=== PATIENT | male | born 1950 | race African-American/Black ===

== ENCOUNTER 2020-11-24 15:36 | Inpatient (IN) | payer MEDICARE, MEDICAID ==
[2020-11-24] MEDS ORDERED: Ketamine 50 MG/ML (10ML VIAL) ONE (15:55)
[2020-11-24] MEDS ORDERED: EPINEPHrine 1 MG/10 ML Abboject SYRINGE ONE (15:56)
[2020-11-24] MEDS ORDERED: Rocuronium Bromide 10 MG/ML (10ML VIAL) ONE ×2 (15:56→15:57)
[2020-11-24] MEDS ORDERED: Fentanyl CADD 100 ML IV SCH (16:15)
[2020-11-24 16:27] LABS: #Lymphocytes 0.6 thou/uL (1.20-3.40); #Monocytes 0.3 thou/uL (0.11-0.59); #Neutrophils 4.5 thou/uL (1.40-6.50); %Eosinophils 0.3 % (0.0-10.0); %Lymphocytes 11.3 % (21.0-51.0); %Monocytes 5.3 % (0.0-10.0); %Neutrophils 83.1 % (42.0-75.0); Hemoglobin 11.3 g/dL (14.0-18.0); Mean Corpuscular HGB CONC 32.3 g/dL (32.0-36.0); Mean Corpuscular Hemoglobin 32.5 pg (27.0-31.0); Mean Platelet Volume 6.9 fL (7.4-10.4); Platelet Count 222 thou/uL (130-400); RBC Distribution Width 11.9 % (11.5-14.5); Red Blood Cell (RBC) Count 3.47 mill/uL (4.70-6.10); White Blood Cell (WBC) Count 5.4 thou/uL (4.8-10.8)
[2020-11-24 16:30] LABS: INR-International Normal Ratio 1.2; Prothrombin Time 15.8 sec (12.0-14.7)
[2020-11-24 16:31] LABS: PTT 44.7 sec (22.9-36.1)
[2020-11-24 16:33] LABS: Acetaminophen Less than 6.0 mcg/mL (10.0-30.0); Alcohol Less than 10 mg/dL (Less than 10); Salicylate Less than 8.0 mg/dL (15.0-30.0)
[2020-11-24 16:34] LABS: ALT (SGPT) 34 U/L (8-55); AST (SGOT) 73 U/L (5-34); Albumin 3.3 g/dL (3.5-5.0); Alkaline Phosphatase 99 U/L (40-110); Anion Gap 18 mmol/L (10-20); BUN (Urea Nitrogen) 82 mg/dL (8.4-25.7); Bilirubin, Total 0.3 mg/dL (0.2-1.2); CK (CPK) 2394 U/L (30-200); Calc. Creatinine Clearance 0 mL/min (70-130); Calcium 8.6 mg/dL (7.8-10.44); Carbon Dioxide 22 mmol/L (22-29); Chloride 112 mmol/L (98-107); Globulin 3.4 g/dL (2.4-3.5); Glucose 71 mg/dL (70-105); Protein, Total 6.7 g/dL (6.0-8.3); Sodium 148 mmol/L (136-145)
[2020-11-24 17:03] LABS: Base Excess (BEa) -7.1 mEq/L (-2.0 to +3.0); CO2 Tension 30.3 mmHg (35.0-45.0); Carboxyhemoglobin (COHb) 0.3 gm% (0.0-3.0); Hemoglobin (Hb) 12.7 g/dL (14.0-18.0); O2 Tension (PaO2), arterial 418.2 mmHg (> 80.0); pH, Arterial 7.37 (7.35-7.45)
[2020-11-24 17:04] LABS: Analyzer IN Cardio ER; Calcium, Ionized (arterial) 1.16 mmol/L (1.12-1.30); Potassium - ABG Lab 4.46 mmol/L (3.70-5.30); Puncture Site LRA
[2020-11-24 17:05] LABS: ALV-art Gradient -28.275 mmHg (0-20)
[2020-11-24 17:54] LABS: Bacteria/HPF None Seen HPF (None Seen); Bilirubin Negative (Negative); Blood, Urine 1+ (Negative); Clarity Clear (Clear); Glucose, Urine (Dipstick) Normal (Negative); Ketone, Urine Trace mg/dL (Negative); Leukocyte Negative Leu/uL (Negative); Nitrite Negative (Negative); Protein, Urine (Dipstick) 100 mg/dL (Neg-Trace); Specific Gravity, Urine 1.021 (1.002-1.036); Squamous Epithelial 0-3 HPF (0-3); Urobilinogen Normal mg/dL (Less than 2)
[2020-11-24 18:05] LABS: RBC/HPF 0-3 HPF (0-3); WBC/HPF 0-3 HPF (0-3)
[2020-11-24 18:06] LABS: Amphetamine Not Detected (NotDetected); Barbiturates Screen Not Detected (NotDetected); Benzodiazepine Screen Not Detected (NotDetected); Cocaine Metabolite Screen Not Detected (NotDetected); Medtox Control Line Valid? VALID (VALID); Medtox Reader # READER 1; Methadone Not Detected (NotDetected); Methamphetamine Not Detected (NotDetected); Opiate Screen Not Detected (NotDetected); Oxycodone Screen Not Detected (NotDetected); Phencyclidine (PCP) Not Detected (NotDetected); THC/Cannabinoid Screen Not Detected (NotDetected); Tricyclic Screen Not Detected (NotDetected)
[2020-11-24] MEDS ORDERED: Ondansetron PF 4 MG/2 ML Vial IVP PRN (18:30)
[2020-11-24] MEDS ORDERED: Acetaminophen 325 MG TAB PO PRN (18:30)
[2020-11-24] MEDS ORDERED: Acetaminophen 650 MG Suppository PR PRN (18:30)
[2020-11-24 18:31] LABS: SARS-CoV-2 NAA Rapid Test Not Detected (NotDetected)
[2020-11-24] MEDS ORDERED: Sodium Chloride 0.9% 1,000 ML IV SCH ×2 (18:45→20:00)
[2020-11-24 18:47] LABS: CKMB 69.4 ng/mL (0-6.6)
[2020-11-24] MEDS ORDERED: Famotidine/PF 20 mg/2ml Vial SLOW IVP SCH (21:00)
[2020-11-24] MEDS ORDERED: VANCOMYCIN 1.25 GM/250 ML BAG 1.25 GM in Premix Bag 1 BAG IVPB SCH (21:30)
[2020-11-24 21:49] LABS: Anion Gap 24 mmol/L (10-20); BUN (Urea Nitrogen) 86 mg/dL (8.4-25.7); Calc. Creatinine Clearance 32 mL/min (70-130); Calcium 8.3 mg/dL (7.8-10.44); Carbon Dioxide 15 mmol/L (23-31); Chloride 113 mmol/L (98-107); Glucose 67 mg/dL (80-115); Potassium 4.5 mmol/L (3.5-5.1); Sodium 147 mmol/L (136-145)
[2020-11-24] MEDS ORDERED: Dextrose 50% Abboject 50 ML SYRINGE SLOW IVP SCH (23:15)
[2020-11-24] MEDS: Dextrose 5 % And 0.9 % NaCl 1,000 ML IV SCH (23:21)
[2020-11-25] MEDS: Norepinephrine 8 MG/0.9% NS 250 ML IVPB SCH ×2 (00:43→11:31)
[2020-11-25 02:52] LABS: Troponin I 0.405 ng/mL (< 0.028)
[2020-11-25] MEDS ORDERED: Furosemide 40 MG/4 ML VIAL SLOW IVP SCH (03:00)
[2020-11-25] MEDS ORDERED: Sodium Chloride 0.9% 1,000 ML IV SCH (03:00)
[2020-11-25 04:33] LABS: #Lymphocytes 0.6 thou/uL (1.20-3.40); #Monocytes 0.4 thou/uL (0.11-0.59); #Neutrophils 7.6 thou/uL (1.40-6.50); %Basophils 0.3 % (0.0-1.0); %Eosinophils 0.1 % (0.0-10.0); %Lymphocytes 7.3 % (21.0-51.0); %Monocytes 4.8 % (0.0-10.0); %Neutrophils 87.5 % (42.0-75.0); Hemoglobin 10.5 g/dL (14.0-18.0); Mean Corpuscular HGB CONC 32.5 g/dL (32.0-36.0); Mean Corpuscular Hemoglobin 31.9 pg (27.0-31.0); Mean Corpuscular Volume 98.1 fL (78.0-98.0); Mean Platelet Volume 7.4 fL (7.4-10.4); Platelet Count 268 thou/uL (130-400); RBC Distribution Width 12.1 % (11.5-14.5); Red Blood Cell (RBC) Count 3.27 mill/uL (4.70-6.10); White Blood Cell (WBC) Count 8.7 thou/uL (4.8-10.8)
[2020-11-25 05:00] LABS: ALT (SGPT) 29 U/L (8-55); AST (SGOT) 61 U/L (5-34); Albumin 2.9 g/dL (3.4-4.8); Alkaline Phosphatase 81 U/L (40-110); Anion Gap 19 mmol/L (10-20); BUN (Urea Nitrogen) 93 mg/dL (8.4-25.7); Bilirubin, Total 0.3 mg/dL (0.2-1.2); CK (CPK) 1548 U/L (30-200); Calc. Creatinine Clearance 22 mL/min (70-130); Calcium 7.6 mg/dL (7.8-10.44); Carbon Dioxide 17 mmol/L (23-31); Chloride 114 mmol/L (98-107); Globulin 3.1 g/dL (2.4-3.5); Glucose 168 mg/dL (80-115); Potassium 4.6 mmol/L (3.5-5.1); Sodium 145 mmol/L (136-145)
[2020-11-25] MEDS ORDERED: Cefepime 2 GM in Sodium Chloride 0.9% 100 ML IVPB SCH (05:00)
[2020-11-25] MEDS: Dextrose 5 % And 0.9 % NaCl 1,000 ML IV SCH ×2 (08:09→14:44)
[2020-11-25] MEDS: Cefepime 1 GM in Sodium Chloride 0.9% 100 ML IVPB SCH (08:20)
[2020-11-25] MEDS: Albumin 25% 25 GM/100 ML BOT IVPB SCH ×3 (08:21→21:00)
[2020-11-25] MEDS: Enoxaparin Sodium 30 MG/0.3 ML SYRINGE SC SCH (08:59)
[2020-11-25] MEDS ORDERED: FLU VACC QS2020-21(65YR UP)/PF 240 MCG/0.7 ML SYRINGE IM ONE (09:00)
[2020-11-25] MEDS ORDERED: Vancomycin HCl 750 MG in Sodium Chloride 0.9% 250 ML 250 ML IVPB SCH (21:00)
[2020-11-25] MEDS ORDERED: Famotidine/PF 20 mg/2ml Vial SLOW IVP SCH (21:00)
[2020-11-26] MEDS: Dextrose 5 % And 0.9 % NaCl 1,000 ML IV SCH ×2 (01:37→09:33)
[2020-11-26] MEDS: Albumin 25% 25 GM/100 ML BOT IVPB SCH (03:52)
[2020-11-26 04:23] LABS: #Lymphocytes 1.3 thou/uL (1.20-3.40); #Monocytes 0.4 thou/uL (0.11-0.59); #Neutrophils 4.3 thou/uL (1.40-6.50); %Basophils 0.4 % (0.0-1.0); %Eosinophils 0.5 % (0.0-10.0); %Lymphocytes 21.3 % (21.0-51.0); %Monocytes 7.2 % (0.0-10.0); %Neutrophils 70.7 % (42.0-75.0); Hemoglobin 8.5 g/dL (14.0-18.0); Mean Corpuscular HGB CONC 32.8 g/dL (32.0-36.0); Mean Corpuscular Hemoglobin 32.4 pg (27.0-31.0); Mean Corpuscular Volume 98.9 fL (78.0-98.0); Mean Platelet Volume 7.1 fL (7.4-10.4); Platelet Count 146 thou/uL (130-400); RBC Distribution Width 12.3 % (11.5-14.5); Red Blood Cell (RBC) Count 2.62 mill/uL (4.70-6.10)
[2020-11-26 04:47] LABS: ALT (SGPT) 22 U/L (8-55); AST (SGOT) 49 U/L (5-34); Albumin 3.5 g/dL (3.4-4.8); Alkaline Phosphatase 63 U/L (40-110); Anion Gap 13 mmol/L (10-20); BUN (Urea Nitrogen) 80 mg/dL (8.4-25.7); Bilirubin, Total 0.3 mg/dL (0.2-1.2); CK (CPK) 1888 U/L (30-200); Calc. Creatinine Clearance 34 mL/min (70-130); Calcium 7.2 mg/dL (7.8-10.44); Carbon Dioxide 20 mmol/L (23-31); Chloride 122 mmol/L (98-107); Globulin 2.6 g/dL (2.4-3.5); Glucose 71 mg/dL (80-115); Potassium 3.7 mmol/L (3.5-5.1); Protein, Total 6.1 g/dL (5.8-8.1); Sodium 151 mmol/L (136-145)
[2020-11-26 07:17] LABS: Actual Bicarbonate (HCO3a) 20.2 mEq/L (22-28); Base Excess (BEa) -4.4 mEq/L (-2.0 to +3.0); CO2 Tension 34.8 mmHg (35.0-45.0); Calcium, Ionized (arterial) 1.04 mmol/L (1.12-1.30); Carboxyhemoglobin (COHb) 0.3 gm% (0.0-3.0); Hemoglobin (Hb) 8.4 g/dL (14.0-18.0); O2 Tension (PaO2), arterial 176.7 mmHg (> 80.0); Potassium - ABG Lab 3.74 mmol/L (3.70-5.30); pH, Arterial 7.38 (7.35-7.45)
[2020-11-26 07:25] LABS: Puncture Site LRA
[2020-11-26] MEDS: Cefepime 1 GM in Sodium Chloride 0.9% 100 ML IVPB SCH (08:56)
[2020-11-26] MEDS: Enoxaparin Sodium 30 MG/0.3 ML SYRINGE SC SCH (08:57)
[2020-11-26] MEDS: Dextrose 5% in Water 1,000 ML IV SCH ×2 (09:37→19:44)
[2020-11-26] MEDS: Famotidine 20 MG TAB PER TUBE SCH (21:12)
[2020-11-27 05:25] LABS: Hemoglobin 8.8 g/dL (14.0-18.0); Mean Corpuscular Hemoglobin 32.5 pg (27.0-31.0); Mean Corpuscular Volume 98.5 fL (78.0-98.0); Mean Platelet Volume 8.4 fL (7.4-10.4); Platelet Count 128 thou/uL (130-400); RBC Distribution Width 12.5 % (11.5-14.5); Red Blood Cell (RBC) Count 2.69 mill/uL (4.70-6.10); White Blood Cell (WBC) Count 6.8 thou/uL (4.8-10.8)
[2020-11-27 05:27] LABS: ALT (SGPT) 29 U/L (8-55); AST (SGOT) 59 U/L (5-34); Albumin 3.5 g/dL (3.4-4.8); Alkaline Phosphatase 62 U/L (40-110); Anion Gap 14 mmol/L (10-20); BUN (Urea Nitrogen) 62 mg/dL (8.4-25.7); Bilirubin, Total 0.4 mg/dL (0.2-1.2); Calc. Creatinine Clearance 29 mL/min (70-130); Calcium 7.9 mg/dL (7.8-10.44); Carbon Dioxide 20 mmol/L (23-31); Chloride 117 mmol/L (98-107); Globulin 2.7 g/dL (2.4-3.5); Glucose 88 mg/dL (80-115); Potassium 3.7 mmol/L (3.5-5.1); Protein, Total 6.2 g/dL (5.8-8.1); Sodium 147 mmol/L (136-145)
[2020-11-27 06:00] LABS: Band 1 % (5-11); Hypochromia SLIGHT = 6-15 cells (100X) (0-5/hpf); Lymphocytes 8 % (21-51); MDiff Complete? YES; Monocytes 5 % (0-10); Neutrophil 86 % (42-75); Platelet Morphology Comment Appears Decreased
[2020-11-27 07:58] LABS: Actual Bicarbonate (HCO3a) 18.7 mEq/L (22-28); Base Excess (BEa) -3.4 mEq/L (-2.0 to +3.0); Calcium, Ionized (arterial) 1.12 mmol/L (1.12-1.30); Carboxyhemoglobin (COHb) 0.3 gm% (0.0-3.0); Hemoglobin (Hb) 9.9 g/dL (14.0-18.0); Potassium - ABG Lab 3.58 mmol/L (3.70-5.30)
[2020-11-27 08:30] LABS: CO2 Tension 24.7 mmHg (35.0-45.0)
[2020-11-27 08:31] LABS: ALV-art Gradient 44.025 mmHg (0-20); Puncture Site RRA
[2020-11-27] MEDS: Enoxaparin Sodium 30 MG/0.3 ML SYRINGE SC SCH (09:36)
[2020-11-27] MEDS: Cefepime 1 GM in Sodium Chloride 0.9% 100 ML IVPB SCH (09:36)
[2020-11-27] MEDS: Famotidine 20 MG TAB PER TUBE SCH (20:30)
[2020-11-27] MEDS: Dextrose 5% in Water 1,000 ML IV SCH (20:31)
[2020-11-28] MEDS: Dextrose 5% in Water 1,000 ML IV SCH (02:39)
[2020-11-28 04:59] LABS: Anion Gap 12 mmol/L (10-20); BUN (Urea Nitrogen) 40 mg/dL (8.4-25.7); CK (CPK) 2014 U/L (30-200); Calc. Creatinine Clearance 47 mL/min (70-130); Carbon Dioxide 23 mmol/L (23-31); Chloride 108 mmol/L (98-107); Glucose 87 mg/dL (80-115); Potassium 3.8 mmol/L (3.5-5.1); Sodium 139 mmol/L (136-145)
[2020-11-28 05:04] LABS: #Lymphocytes 1.2 thou/uL (1.20-3.40); #Monocytes 0.7 thou/uL (0.11-0.59); %Basophils 0.1 % (0.0-1.0); %Eosinophils 0.3 % (0.0-10.0); %Lymphocytes 15.6 % (21.0-51.0); %Monocytes 8.4 % (0.0-10.0); %Neutrophils 75.5 % (42.0-75.0); Hemoglobin 9.4 g/dL (14.0-18.0); Mean Corpuscular Hemoglobin 31.8 pg (27.0-31.0); Mean Corpuscular Volume 99.2 fL (78.0-98.0); Mean Platelet Volume 8.6 fL (7.4-10.4); Platelet Count 115 thou/uL (130-400); RBC Distribution Width 12.3 % (11.5-14.5); Red Blood Cell (RBC) Count 2.95 mill/uL (4.70-6.10)
[2020-11-28 07:35] LABS: CO2 Tension 31.9 mmHg (35.0-45.0); Calcium, Ionized (arterial) 1.14 mmol/L (1.12-1.30); Carboxyhemoglobin (COHb) 0.3 gm% (0.0-3.0); Hemoglobin (Hb) 11.4 g/dL (14.0-18.0); Potassium - ABG Lab 3.85 mmol/L (3.70-5.30); pH, Arterial 7.48 (7.35-7.45)
[2020-11-28 07:58] LABS: ALV-art Gradient 42.025 mmHg (0-20); Puncture Site RRA
[2020-11-28] MEDS: Famotidine 20 MG TAB PER TUBE SCH (09:21)
[2020-11-28] MEDS: Cefdinir 300 MG CAP PO SCH ×2 (09:21→20:07)
[2020-11-28] MEDS: Enoxaparin Sodium 40 MG/0.4 ML SYRINGE SC SCH (09:22)
[2020-11-28] MEDS: Sodium Chloride 0.45% 1,000 ML IV SCH ×2 (10:07→23:37)
[2020-11-28] MEDS ORDERED: hydrALAZINE 20 MG/ML VIAL SLOW IVP PRN (13:55)
[2020-11-28] MEDS ORDERED: Amlodipine 10 MG TAB PO SCH (15:30)
[2020-11-28] MEDS ORDERED: Aspirin Chewable 81 MG TAB PO SCH (16:00)
[2020-11-28] MEDS: hydrALAZINE 25 MG TAB PO SCH (20:08)
[2020-11-28] MEDS: Isosorbide Dinitrate 20 MG TAB PO SCH (20:38)
[2020-11-29] MEDS: Sodium Chloride 0.45% 1,000 ML IV SCH (01:32)
[2020-11-29 04:39] LABS: Anion Gap 12 mmol/L (10-20); BUN (Urea Nitrogen) 32 mg/dL (8.4-25.7); Band 3 % (5-11); CK (CPK) 1123 U/L (30-200); Calc. Creatinine Clearance 59 mL/min (70-130); Calcium 8.8 mg/dL (7.8-10.44); Carbon Dioxide 27 mmol/L (23-31); Cardiac Risk 3.5 (Less than 4.5); Chloride 102 mmol/L (98-107); Cholesterol 137 mg/dl (< 200 Desired); Glucose 88 mg/dL (80-115); HDL Cholesterol 39 mg/dL (>60 Neg Risk); Hemoglobin 10.1 g/dL (14.0-18.0); Hypochromia SLIGHT = 6-15 cells (100X) (0-5/hpf); LDL Cholesterol, Calculated 75 mg/dL; Lymphocytes 16 % (21-51); MDiff Complete? YES; Mean Corpuscular HGB CONC 32.7 g/dL (32.0-36.0); Mean Corpuscular Hemoglobin 32.2 pg (27.0-31.0); Mean Corpuscular Volume 98.3 fL (78.0-98.0); Mean Platelet Volume 8.4 fL (7.4-10.4); Monocytes 11 % (0-10); Neutrophil 70 % (42-75); Platelet Count 141 thou/uL (130-400); Platelet Morphology Comment Appears Adequate; Potassium 3.9 mmol/L (3.5-5.1); RBC Distribution Width 12.1 % (11.5-14.5); Red Blood Cell (RBC) Count 3.14 mill/uL (4.70-6.10); Sodium 137 mmol/L (136-145); Triglycerides 115 mg/dL (Less than 150); White Blood Cell (WBC) Count 6.5 thou/uL (4.8-10.8)
[2020-11-29 07:43] LABS: Actual Bicarbonate (HCO3a) 24.8 mEq/L (22-28); Base Excess (BEa) 1.7 mEq/L (-2.0 to +3.0); CO2 Tension 33.6 mmHg (35.0-45.0); Calcium, Ionized (arterial) 1.16 mmol/L (1.12-1.30); Carboxyhemoglobin (COHb) 0.3 gm% (0.0-3.0); Hemoglobin (Hb) 10.9 g/dL (14.0-18.0); O2 Tension (PaO2), arterial 133.3 mmHg (> 80.0); Potassium - ABG Lab 4.03 mmol/L (3.70-5.30); pH, Arterial 7.49 (7.35-7.45)
[2020-11-29 08:07] LABS: Puncture Site LRA
[2020-11-29] MEDS: Amlodipine 10 MG TAB PO SCH (09:44)
[2020-11-29] MEDS: Famotidine 20 MG TAB PER TUBE SCH (09:44)
[2020-11-29] MEDS: Enoxaparin Sodium 40 MG/0.4 ML SYRINGE SC SCH (09:44)
[2020-11-29] MEDS: hydrALAZINE 25 MG TAB PO SCH ×2 (09:44→21:48)
[2020-11-29] MEDS: Cefdinir 300 MG CAP PO SCH ×2 (09:44→21:48)
[2020-11-29] MEDS: Aspirin Chewable 81 MG TAB PO SCH (09:44)
[2020-11-29] MEDS: Isosorbide Dinitrate 20 MG TAB PO SCH ×2 (09:57→22:33)
[2020-11-30] MEDS: Sodium Chloride 0.45% 1,000 ML IV SCH ×2 (00:24→17:23)
[2020-11-30 04:46] LABS: #Eosinphils 0.1 thou/uL (0.0-0.7); #Lymphocytes 1.1 thou/uL (1.20-3.40); #Monocytes 0.5 thou/uL (0.11-0.59); #Neutrophils 4.6 thou/uL (1.40-6.50); %Basophils 0.3 % (0.0-1.0); %Eosinophils 1.8 % (0.0-10.0); %Lymphocytes 17.4 % (21.0-51.0); %Monocytes 7.4 % (0.0-10.0); %Neutrophils 73.1 % (42.0-75.0); Hemoglobin 10.1 g/dL (14.0-18.0); Mean Corpuscular Hemoglobin 31.3 pg (27.0-31.0); Mean Corpuscular Volume 97.5 fL (78.0-98.0); Mean Platelet Volume 9.3 fL (7.4-10.4); Platelet Count 149 thou/uL (130-400); RBC Distribution Width 11.9 % (11.5-14.5); Red Blood Cell (RBC) Count 3.22 mill/uL (4.70-6.10); White Blood Cell (WBC) Count 6.3 thou/uL (4.8-10.8)
[2020-11-30 04:47] LABS: Anion Gap 13 mmol/L (10-20); BUN (Urea Nitrogen) 30 mg/dL (8.4-25.7); CK (CPK) 622 U/L (30-200); Calc. Creatinine Clearance 60 mL/min (70-130); Calcium 8.9 mg/dL (7.8-10.44); Carbon Dioxide 25 mmol/L (23-31); Chloride 101 mmol/L (98-107); Glucose 94 mg/dL (80-115); Potassium 4.6 mmol/L (3.5-5.1); Sodium 134 mmol/L (136-145)
[2020-11-30] MEDS ORDERED: DC Sedation Protocol FS ONE (07:49)
[2020-11-30] MEDS: Cefdinir 300 MG CAP PO SCH ×3 (11:52→23:16)
[2020-11-30] MEDS: hydrALAZINE 25 MG TAB PO SCH ×3 (11:52→23:16)
[2020-11-30] MEDS: Amlodipine 10 MG TAB PO SCH (11:52)
[2020-11-30] MEDS: Isosorbide Dinitrate 20 MG TAB PO SCH ×2 (11:52→23:16)
[2020-11-30] MEDS: Aspirin Chewable 81 MG TAB PO SCH (11:52)
[2020-11-30] MEDS: Famotidine 20 MG TAB PER TUBE SCH (12:01)
[2020-11-30] MEDS: Enoxaparin Sodium 40 MG/0.4 ML SYRINGE SC SCH (12:02)
[2020-12-01] MEDS: Sodium Chloride 0.45% 1,000 ML IV SCH ×3 (04:25→18:58)
[2020-12-01 05:19] LABS: Anion Gap 14 mmol/L (10-20); BUN (Urea Nitrogen) 25 mg/dL (8.4-25.7); Calc. Creatinine Clearance 61 mL/min (70-130); Calcium 9.4 mg/dL (7.8-10.44); Carbon Dioxide 25 mmol/L (23-31); Chloride 102 mmol/L (98-107); Glucose 71 mg/dL (80-115); Potassium 4.7 mmol/L (3.5-5.1); Sodium 136 mmol/L (136-145)
[2020-12-01 05:38] LABS: Band 1 % (5-11); Eosinophils 1 % (0-10); Hemoglobin 10.5 g/dL (14.0-18.0); Lymphocytes 17 % (21-51); MDiff Complete? YES; Mean Corpuscular HGB CONC 31.7 g/dL (32.0-36.0); Mean Corpuscular Volume 97.7 fL (78.0-98.0); Mean Platelet Volume 8.4 fL (7.4-10.4); Monocytes 1 % (0-10); Neutrophil 80 % (42-75); Platelet Count 202 thou/uL (130-400); RBC Distribution Width 11.9 % (11.5-14.5); Red Blood Cell (RBC) Count 3.39 mill/uL (4.70-6.10); White Blood Cell (WBC) Count 6.3 thou/uL (4.8-10.8)
[2020-12-01] MEDS: Cefdinir 300 MG CAP PO SCH ×2 (10:48→23:19)
[2020-12-01] MEDS: hydrALAZINE 25 MG TAB PO SCH ×2 (10:48→23:20)
[2020-12-01] MEDS: Aspirin Chewable 81 MG TAB PO SCH (10:48)
[2020-12-01] MEDS: Amlodipine 10 MG TAB PO SCH (10:48)
[2020-12-01] MEDS: Isosorbide Dinitrate 20 MG TAB PO SCH ×2 (10:51→23:19)
[2020-12-01] MEDS: Pantoprazole 40 MG VIAL IVP SCH ×2 (10:52→11:01)
[2020-12-01] MEDS: Enoxaparin Sodium 40 MG/0.4 ML SYRINGE SC SCH (10:54)
[2020-12-01] MEDS: Nitroglycerin 2% Ointment 1 INCH/1 GM Packet TOP SCH ×3 (11:01→23:23)
[2020-12-01] MEDS: Famotidine 20 MG TAB PER TUBE SCH (11:05)
[2020-12-02 05:19] LABS: #Basophils 0.1 thou/uL (0.0-0.2); #Eosinphils 0.1 thou/uL (0.0-0.7); #Lymphocytes 1.5 thou/uL (1.20-3.40); #Monocytes 0.6 thou/uL (0.11-0.59); %Basophils 0.7 % (0.0-1.0); %Eosinophils 1.9 % (0.0-10.0); %Lymphocytes 20.2 % (21.0-51.0); %Monocytes 8.8 % (0.0-10.0); %Neutrophils 68.4 % (42.0-75.0); Mean Corpuscular HGB CONC 33.1 g/dL (32.0-36.0); Mean Corpuscular Hemoglobin 32.3 pg (27.0-31.0); Mean Corpuscular Volume 97.7 fL (78.0-98.0); Platelet Count 161 thou/uL (130-400); White Blood Cell (WBC) Count 7.3 thou/uL (4.8-10.8)
[2020-12-02 05:38] LABS: Anion Gap 16 mmol/L (10-20); BUN (Urea Nitrogen) 28 mg/dL (8.4-25.7); Calc. Creatinine Clearance 52 mL/min (70-130); Calcium 9.2 mg/dL (7.8-10.44); Carbon Dioxide 21 mmol/L (23-31); Chloride 101 mmol/L (98-107); Potassium 5.1 mmol/L (3.5-5.1); Sodium 133 mmol/L (136-145)
[2020-12-02 05:49] LABS: Glucose 57 mg/dL (80-115)
[2020-12-02] MEDS: Nitroglycerin 2% Ointment 1 INCH/1 GM Packet TOP SCH ×3 (06:12→21:25)
[2020-12-02] MEDS ORDERED: Dextrose 50% Abboject 50 ML SYRINGE ONE (06:27)
[2020-12-02] MEDS ORDERED: Dextrose 50% Abboject 50 ML SYRINGE SLOW IVP SCH (07:30)
[2020-12-02] MEDS: Enoxaparin Sodium 40 MG/0.4 ML SYRINGE SC SCH (10:05)
[2020-12-02] MEDS: Pantoprazole 40 MG VIAL IVP SCH (10:06)
[2020-12-02] MEDS: Amlodipine 10 MG TAB PO SCH (10:47)
[2020-12-02] MEDS: Aspirin Chewable 81 MG TAB PO SCH (10:47)
[2020-12-02] MEDS: Isosorbide Dinitrate 20 MG TAB PO SCH ×2 (10:49→21:24)
[2020-12-02] MEDS: Cefdinir 300 MG CAP PO SCH ×2 (10:50→21:24)
[2020-12-02] MEDS: hydrALAZINE 25 MG TAB PO SCH ×2 (10:50→21:24)
[2020-12-02] MEDS ORDERED: Bisacodyl 10 MG SUPP PR PRN (11:18)
[2020-12-02] MEDS ORDERED: Fleet Enema 133 ML BOT PR SCH (11:30)
[2020-12-02] MEDS: Sodium Chloride 0.45% 1,000 ML IV SCH (17:57)
[2020-12-02] MEDS: Docusate Sodium 100 MG/10 ML UDCUP PO SCH (21:24)
[2020-12-02] MEDS: Dextrose 5 %-0.45 % NaCl 1,000 ML IV SCH (21:26)
[2020-12-03] MEDS: Nitroglycerin 2% Ointment 1 INCH/1 GM Packet TOP SCH ×4 (04:14→22:15)
[2020-12-03 05:20] LABS: #Eosinphils 0.1 thou/uL (0.0-0.7); #Lymphocytes 1.2 thou/uL (1.20-3.40); #Monocytes 0.5 thou/uL (0.11-0.59); #Neutrophils 4.3 thou/uL (1.40-6.50); %Basophils 0.2 % (0.0-1.0); %Eosinophils 1.5 % (0.0-10.0); %Lymphocytes 19.3 % (21.0-51.0); %Monocytes 8.2 % (0.0-10.0); %Neutrophils 70.8 % (42.0-75.0); Hemoglobin 9.9 g/dL (14.0-18.0); Mean Corpuscular HGB CONC 33.2 g/dL (32.0-36.0); Mean Corpuscular Hemoglobin 32.4 pg (27.0-31.0); Mean Corpuscular Volume 97.5 fL (78.0-98.0); Mean Platelet Volume 8.3 fL (7.4-10.4); Platelet Count 245 thou/uL (130-400); Red Blood Cell (RBC) Count 3.04 mill/uL (4.70-6.10); White Blood Cell (WBC) Count 6.1 thou/uL (4.8-10.8)
[2020-12-03 05:42] LABS: Anion Gap 15 mmol/L (10-20); BUN (Urea Nitrogen) 36 mg/dL (8.4-25.7); Calc. Creatinine Clearance 41 mL/min (70-130); Calcium 8.3 mg/dL (7.8-10.44); Carbon Dioxide 25 mmol/L (23-31); Chloride 103 mmol/L (98-107); Glucose 110 mg/dL (80-115); Potassium 4.6 mmol/L (3.5-5.1); Sodium 138 mmol/L (136-145)
[2020-12-03] MEDS: Docusate Sodium 100 MG/10 ML UDCUP PO SCH ×2 (10:20→22:14)
[2020-12-03] MEDS: Isosorbide Dinitrate 20 MG TAB PO SCH ×2 (10:20→22:14)
[2020-12-03] MEDS: Aspirin Chewable 81 MG TAB PO SCH (10:21)
[2020-12-03] MEDS: Amlodipine 10 MG TAB PO SCH (10:21)
[2020-12-03] MEDS: hydrALAZINE 25 MG TAB PO SCH ×2 (10:21→22:15)
[2020-12-03] MEDS: Enoxaparin Sodium 40 MG/0.4 ML SYRINGE SC SCH (10:22)
[2020-12-03] MEDS: Polyethylene Glycol 3350 17 GM Packet PER TUBE SCH (10:22)
[2020-12-03] MEDS: Pantoprazole 40 MG VIAL IVP SCH (11:18)
[2020-12-03] MEDS: Dextrose 5 %-0.45 % NaCl 1,000 ML IV SCH ×2 (11:23→22:15)
[2020-12-03] MEDS: Cefdinir 300 MG CAP PO SCH (12:35)
[2020-12-04] MEDS: Dextrose 5 %-0.45 % NaCl 1,000 ML IV SCH ×2 (00:58→22:33)
[2020-12-04] MEDS: Nitroglycerin 2% Ointment 1 INCH/1 GM Packet TOP SCH ×5 (03:17→22:12)
[2020-12-04 05:12] LABS: #Eosinphils 0.1 thou/uL (0.0-0.7); #Lymphocytes 1.2 thou/uL (1.20-3.40); #Monocytes 0.7 thou/uL (0.11-0.59); #Neutrophils 4.1 thou/uL (1.40-6.50); %Basophils 0.2 % (0.0-1.0); %Eosinophils 1.3 % (0.0-10.0); %Lymphocytes 19.8 % (21.0-51.0); %Monocytes 11.3 % (0.0-10.0); %Neutrophils 67.4 % (42.0-75.0); Hemoglobin 9.8 g/dL (14.0-18.0); Mean Corpuscular HGB CONC 33.2 g/dL (32.0-36.0); Mean Corpuscular Hemoglobin 32.7 pg (27.0-31.0); Mean Corpuscular Volume 98.7 fL (78.0-98.0); Mean Platelet Volume 6.5 fL (7.4-10.4); Platelet Count 349 thou/uL (130-400); White Blood Cell (WBC) Count 6.1 thou/uL (4.8-10.8)
[2020-12-04 05:26] LABS: Anion Gap 13 mmol/L (10-20); BUN (Urea Nitrogen) 31 mg/dL (8.4-25.7); Calc. Creatinine Clearance 44 mL/min (70-130); Calcium 8.4 mg/dL (7.8-10.44); Carbon Dioxide 24 mmol/L (23-31); Chloride 104 mmol/L (98-107); Glucose 103 mg/dL (80-115); Potassium 4.9 mmol/L (3.5-5.1); Sodium 136 mmol/L (136-145)
[2020-12-04] MEDS: Aspirin Chewable 81 MG TAB PO SCH (11:15)
[2020-12-04] MEDS: Polyethylene Glycol 3350 17 GM Packet PER TUBE SCH (11:15)
[2020-12-04] MEDS: Enoxaparin Sodium 40 MG/0.4 ML SYRINGE SC SCH (11:15)
[2020-12-04] MEDS: hydrALAZINE 25 MG TAB PO SCH ×2 (11:16→22:04)
[2020-12-04] MEDS: Pantoprazole 40 MG VIAL IVP SCH (11:16)
[2020-12-04] MEDS: Amlodipine 10 MG TAB PO SCH (11:16)
[2020-12-04] MEDS: Isosorbide Dinitrate 20 MG TAB PO SCH ×2 (11:16→22:04)
[2020-12-04] MEDS: Docusate Sodium 100 MG/10 ML UDCUP PO SCH ×2 (11:48→22:03)
[2020-12-04] MEDS: levETIRAcetam in NS 500 MG in Premix Bag 1 BAG IVPB SCH (14:57)
[2020-12-04] MEDS ORDERED: Dextrose 50% Abboject 50 ML SYRINGE SLOW IVP SCH (21:00)
[2020-12-05] MEDS: Nitroglycerin 2% Ointment 1 INCH/1 GM Packet TOP SCH ×4 (02:01→20:51)
[2020-12-05] MEDS: levETIRAcetam in NS 500 MG in Premix Bag 1 BAG IVPB SCH ×2 (02:01→13:39)
[2020-12-05 05:41] LABS: #Eosinphils 0.1 thou/uL (0.0-0.7); #Lymphocytes 1.1 thou/uL (1.20-3.40); #Monocytes 0.5 thou/uL (0.11-0.59); #Neutrophils 4.2 thou/uL (1.40-6.50); %Basophils 0.6 % (0.0-1.0); %Eosinophils 1.5 % (0.0-10.0); %Lymphocytes 18.5 % (21.0-51.0); %Monocytes 8.7 % (0.0-10.0); %Neutrophils 70.7 % (42.0-75.0); Hemoglobin 10.6 g/dL (14.0-18.0); Mean Corpuscular HGB CONC 30.9 g/dL (32.0-36.0); Mean Corpuscular Hemoglobin 32.1 pg (27.0-31.0); Mean Platelet Volume 6.4 fL (7.4-10.4); Platelet Count 418 thou/uL (130-400); Red Blood Cell (RBC) Count 3.31 mill/uL (4.70-6.10)
[2020-12-05 05:59] LABS: Anion Gap 16 mmol/L (10-20); BUN (Urea Nitrogen) 26 mg/dL (8.4-25.7); Calc. Creatinine Clearance 50 mL/min (70-130); Calcium 9.2 mg/dL (7.8-10.44); Carbon Dioxide 23 mmol/L (23-31); Chloride 102 mmol/L (98-107); Glucose 82 mg/dL (80-115); Potassium 4.9 mmol/L (3.5-5.1); Sodium 136 mmol/L (136-145)
[2020-12-05] MEDS: Docusate Sodium 100 MG/10 ML UDCUP PO SCH ×2 (10:43→20:51)
[2020-12-05] MEDS: Aspirin Chewable 81 MG TAB PO SCH (10:43)
[2020-12-05] MEDS: Enoxaparin Sodium 40 MG/0.4 ML SYRINGE SC SCH (10:43)
[2020-12-05] MEDS: Polyethylene Glycol 3350 17 GM Packet PER TUBE SCH (10:43)
[2020-12-05] MEDS: Isosorbide Dinitrate 20 MG TAB PO SCH ×2 (10:44→20:51)
[2020-12-05] MEDS: hydrALAZINE 25 MG TAB PO SCH ×2 (10:44→20:51)
[2020-12-05] MEDS: Amlodipine 10 MG TAB PO SCH (10:44)
[2020-12-05] MEDS: Pantoprazole 40 MG VIAL IVP SCH (10:45)
[2020-12-05] MEDS: Dextrose 5 %-0.45 % NaCl 1,000 ML IV SCH (13:39)
[2020-12-06] MEDS: levETIRAcetam in NS 500 MG in Premix Bag 1 BAG IVPB SCH ×2 (02:55→16:17)
[2020-12-06] MEDS: Nitroglycerin 2% Ointment 1 INCH/1 GM Packet TOP SCH ×4 (02:55→21:50)
[2020-12-06] MEDS: Dextrose 5 %-0.45 % NaCl 1,000 ML IV SCH ×2 (05:27→21:50)
[2020-12-06 05:45] LABS: #Eosinphils 0.1 thou/uL (0.0-0.7); #Lymphocytes 1.3 thou/uL (1.20-3.40); #Monocytes 0.4 thou/uL (0.11-0.59); #Neutrophils 3.8 thou/uL (1.40-6.50); %Basophils 0.3 % (0.0-1.0); %Eosinophils 2.4 % (0.0-10.0); %Lymphocytes 22.5 % (21.0-51.0); %Monocytes 6.7 % (0.0-10.0); Hemoglobin 10.6 g/dL (14.0-18.0); Mean Corpuscular HGB CONC 31.2 g/dL (32.0-36.0); Mean Corpuscular Hemoglobin 31.9 pg (27.0-31.0); Mean Platelet Volume 7.4 fL (7.4-10.4); Platelet Count 441 thou/uL (130-400); Red Blood Cell (RBC) Count 3.33 mill/uL (4.70-6.10); White Blood Cell (WBC) Count 5.5 thou/uL (4.8-10.8)
[2020-12-06 05:52] LABS: Anion Gap 13 mmol/L (10-20); BUN (Urea Nitrogen) 20 mg/dL (8.4-25.7); Calc. Creatinine Clearance 51 mL/min (70-130); Calcium 9.5 mg/dL (7.8-10.44); Carbon Dioxide 27 mmol/L (23-31); Chloride 102 mmol/L (98-107); Glucose 82 mg/dL (80-115); Potassium 4.7 mmol/L (3.5-5.1); Sodium 137 mmol/L (136-145)
[2020-12-06] MEDS: Dextrose 50% Abboject 50 ML SYRINGE IVP PRN (06:09)
[2020-12-06] MEDS ORDERED: HumaLOG 300 UNITS/3 ML VIAL SC PRN (07:00)
[2020-12-06] MEDS ORDERED: Dextrose 5% in Water 1,000 ML IV PRN (07:00)
[2020-12-06] MEDS: Enoxaparin Sodium 40 MG/0.4 ML SYRINGE SC SCH (09:53)
[2020-12-06] MEDS: Amlodipine 10 MG TAB PO SCH (09:53)
[2020-12-06] MEDS: hydrALAZINE 25 MG TAB PO SCH ×2 (09:54→21:50)
[2020-12-06] MEDS: Aspirin Chewable 81 MG TAB PO SCH (09:54)
[2020-12-06] MEDS: Pantoprazole 40 MG VIAL IVP SCH (09:54)
[2020-12-06] MEDS: Docusate Sodium 100 MG/10 ML UDCUP PO SCH ×2 (09:54→21:51)
[2020-12-06] MEDS: Polyethylene Glycol 3350 17 GM Packet PER TUBE SCH (09:54)
[2020-12-06] MEDS: Isosorbide Dinitrate 20 MG TAB PO SCH ×2 (09:55→21:50)
[2020-12-07] MEDS: levETIRAcetam in NS 500 MG in Premix Bag 1 BAG IVPB SCH ×2 (02:08→14:31)
[2020-12-07] MEDS: Nitroglycerin 2% Ointment 1 INCH/1 GM Packet TOP SCH ×4 (02:08→23:16)
[2020-12-07 05:19] LABS: #Eosinphils 0.1 thou/uL (0.0-0.7); #Lymphocytes 1.6 thou/uL (1.20-3.40); #Monocytes 0.8 thou/uL (0.11-0.59); #Neutrophils 4.9 thou/uL (1.40-6.50); %Basophils 0.4 % (0.0-1.0); %Eosinophils 1.8 % (0.0-10.0); %Lymphocytes 21.4 % (21.0-51.0); %Monocytes 10.3 % (0.0-10.0); %Neutrophils 66.1 % (42.0-75.0); Mean Corpuscular HGB CONC 32.7 g/dL (32.0-36.0); Mean Corpuscular Hemoglobin 32.7 pg (27.0-31.0); Platelet Count 468 thou/uL (130-400); Red Blood Cell (RBC) Count 3.38 mill/uL (4.70-6.10); White Blood Cell (WBC) Count 7.4 thou/uL (4.8-10.8)
[2020-12-07 05:38] LABS: Anion Gap 17 mmol/L (10-20); BUN (Urea Nitrogen) 18 mg/dL (8.4-25.7); Calc. Creatinine Clearance 52 mL/min (70-130); Calcium 9.4 mg/dL (7.8-10.44); Carbon Dioxide 23 mmol/L (23-31); Chloride 101 mmol/L (98-107); Glucose 75 mg/dL (80-115); Potassium 4.8 mmol/L (3.5-5.1); Sodium 136 mmol/L (136-145)
[2020-12-07] MEDS: Dextrose 50% Abboject 50 ML SYRINGE IVP PRN (05:57)
[2020-12-07] MEDS: Dextrose 5 %-0.45 % NaCl 1,000 ML IV SCH ×3 (09:04→23:19)
[2020-12-07] MEDS: hydrALAZINE 25 MG TAB PO SCH ×2 (09:05→23:16)
[2020-12-07] MEDS: Amlodipine 10 MG TAB PO SCH (09:05)
[2020-12-07] MEDS: Isosorbide Dinitrate 20 MG TAB PO SCH ×2 (09:06→23:16)
[2020-12-07] MEDS: Polyethylene Glycol 3350 17 GM Packet PER TUBE SCH (09:07)
[2020-12-07] MEDS: Docusate Sodium 100 MG/10 ML UDCUP PO SCH ×2 (09:07→23:17)
[2020-12-07] MEDS: Aspirin Chewable 81 MG TAB PO SCH (09:07)
[2020-12-07] MEDS: Enoxaparin Sodium 40 MG/0.4 ML SYRINGE SC SCH (09:09)
[2020-12-07] MEDS: Pantoprazole 40 MG VIAL IVP SCH (09:10)
[2020-12-08] MEDS: Nitroglycerin 2% Ointment 1 INCH/1 GM Packet TOP SCH ×4 (03:01→19:56)
[2020-12-08] MEDS: levETIRAcetam in NS 500 MG in Premix Bag 1 BAG IVPB SCH ×2 (03:01→14:15)
[2020-12-08 05:12] LABS: #Eosinphils 0.1 thou/uL (0.0-0.7); #Lymphocytes 1.3 thou/uL (1.20-3.40); #Monocytes 0.2 thou/uL (0.11-0.59); #Neutrophils 3.9 thou/uL (1.40-6.50); %Basophils 0.4 % (0.0-1.0); %Eosinophils 1.6 % (0.0-10.0); %Lymphocytes 23.1 % (21.0-51.0); Hemoglobin 10.1 g/dL (14.0-18.0); Mean Corpuscular HGB CONC 33.2 g/dL (32.0-36.0); Mean Corpuscular Volume 99.5 fL (78.0-98.0); Mean Platelet Volume 6.7 fL (7.4-10.4); Platelet Count 536 thou/uL (130-400); RBC Distribution Width 12.1 % (11.5-14.5); Red Blood Cell (RBC) Count 3.06 mill/uL (4.70-6.10); White Blood Cell (WBC) Count 5.5 thou/uL (4.8-10.8)
[2020-12-08 05:32] LABS: Anion Gap 14 mmol/L (10-20); BUN (Urea Nitrogen) 21 mg/dL (8.4-25.7); Calc. Creatinine Clearance 46 mL/min (70-130); Calcium 8.8 mg/dL (7.8-10.44); Carbon Dioxide 26 mmol/L (23-31); Chloride 102 mmol/L (98-107); Glucose 103 mg/dL (80-115); Potassium 4.6 mmol/L (3.5-5.1); Sodium 137 mmol/L (136-145)
[2020-12-08] MEDS: Docusate Sodium 100 MG/10 ML UDCUP PO SCH ×2 (09:19→19:55)
[2020-12-08] MEDS: Enoxaparin Sodium 40 MG/0.4 ML SYRINGE SC SCH (09:19)
[2020-12-08] MEDS: Aspirin Chewable 81 MG TAB PO SCH (09:19)
[2020-12-08] MEDS: Amlodipine 10 MG TAB PO SCH (09:19)
[2020-12-08] MEDS: Polyethylene Glycol 3350 17 GM Packet PER TUBE SCH (09:19)
[2020-12-08] MEDS: hydrALAZINE 25 MG TAB PO SCH ×2 (09:20→19:55)
[2020-12-08] MEDS: Isosorbide Dinitrate 20 MG TAB PO SCH ×2 (09:21→19:55)
[2020-12-08] MEDS: Pantoprazole 40 MG VIAL IVP SCH (09:21)
[2020-12-08] MEDS ORDERED: Isosorbide Dinitrate 20 MG TAB PO SCH (09:30)
[2020-12-08] MEDS: Dextrose 5 %-0.45 % NaCl 1,000 ML IV SCH (11:37)
[2020-12-08] MEDS ORDERED: Pancrelipase DR 12,000 1 CAP FS PRN (15:15)
[2020-12-08] MEDS ORDERED: Sodium Bicarbonate Tab 325 MG TAB PER TUBE PRN (15:15)
[2020-12-09] MEDS: levETIRAcetam in NS 500 MG in Premix Bag 1 BAG IVPB SCH ×2 (01:48→14:19)
[2020-12-09] MEDS: Dextrose 5 %-0.45 % NaCl 1,000 ML IV SCH ×2 (02:28→14:21)
[2020-12-09] MEDS: Nitroglycerin 2% Ointment 1 INCH/1 GM Packet TOP SCH ×4 (02:29→20:46)
[2020-12-09 05:48] LABS: #Eosinphils 0.2 thou/uL (0.0-0.7); #Lymphocytes 1.5 thou/uL (1.20-3.40); #Monocytes 0.3 thou/uL (0.11-0.59); #Neutrophils 4.2 thou/uL (1.40-6.50); %Basophils 0.2 % (0.0-1.0); %Eosinophils 2.5 % (0.0-10.0); %Lymphocytes 23.9 % (21.0-51.0); %Monocytes 5.4 % (0.0-10.0); %Neutrophils 68.1 % (42.0-75.0); Hemoglobin 10.2 g/dL (14.0-18.0); Mean Corpuscular HGB CONC 32.1 g/dL (32.0-36.0); Mean Corpuscular Hemoglobin 32.3 pg (27.0-31.0); Mean Platelet Volume 7.3 fL (7.4-10.4); Platelet Count 518 thou/uL (130-400); Red Blood Cell (RBC) Count 3.17 mill/uL (4.70-6.10); White Blood Cell (WBC) Count 6.1 thou/uL (4.8-10.8)
[2020-12-09 06:09] LABS: Anion Gap 14 mmol/L (10-20); BUN (Urea Nitrogen) 24 mg/dL (8.4-25.7); Calc. Creatinine Clearance 47 mL/min (70-130); Calcium 9.1 mg/dL (7.8-10.44); Carbon Dioxide 25 mmol/L (23-31); Chloride 102 mmol/L (98-107); Glucose 94 mg/dL (80-115); Potassium 4.7 mmol/L (3.5-5.1); Sodium 136 mmol/L (136-145)
[2020-12-09] MEDS: Polyethylene Glycol 3350 17 GM Packet PER TUBE SCH (08:45)
[2020-12-09] MEDS: Isosorbide Dinitrate 20 MG TAB PO SCH ×2 (08:45→20:46)
[2020-12-09] MEDS: Enoxaparin Sodium 40 MG/0.4 ML SYRINGE SC SCH (08:45)
[2020-12-09] MEDS: Pantoprazole 40 MG VIAL IVP SCH (08:45)
[2020-12-09] MEDS: Docusate Sodium 100 MG/10 ML UDCUP PO SCH ×2 (08:45→20:46)
[2020-12-09] MEDS: hydrALAZINE 25 MG TAB PO SCH ×2 (08:45→20:46)
[2020-12-09] MEDS: Aspirin Chewable 81 MG TAB PO SCH (08:45)
[2020-12-09] MEDS: Amlodipine 10 MG TAB PO SCH (08:46)
[2020-12-10] MEDS: levETIRAcetam in NS 500 MG in Premix Bag 1 BAG IVPB SCH ×2 (01:17→15:41)
[2020-12-10] MEDS: Nitroglycerin 2% Ointment 1 INCH/1 GM Packet TOP SCH ×4 (02:52→20:53)
[2020-12-10 04:58] LABS: #Eosinphils 0.1 thou/uL (0.0-0.7); #Lymphocytes 1.3 thou/uL (1.20-3.40); #Monocytes 0.2 thou/uL (0.11-0.59); #Neutrophils 4.1 thou/uL (1.40-6.50); %Basophils 0.5 % (0.0-1.0); %Eosinophils 1.8 % (0.0-10.0); %Lymphocytes 22.5 % (21.0-51.0); %Monocytes 4.2 % (0.0-10.0); Hemoglobin 9.7 g/dL (14.0-18.0); Mean Corpuscular HGB CONC 33.7 g/dL (32.0-36.0); Mean Corpuscular Hemoglobin 33.6 pg (27.0-31.0); Mean Corpuscular Volume 99.5 fL (78.0-98.0); Mean Platelet Volume 6.5 fL (7.4-10.4); Platelet Count 522 thou/uL (130-400); RBC Distribution Width 11.9 % (11.5-14.5); White Blood Cell (WBC) Count 5.8 thou/uL (4.8-10.8)
[2020-12-10 05:27] LABS: Anion Gap 14 mmol/L (10-20); BUN (Urea Nitrogen) 22 mg/dL (8.4-25.7); Calc. Creatinine Clearance 45 mL/min (70-130); Calcium 9.1 mg/dL (7.8-10.44); Carbon Dioxide 26 mmol/L (23-31); Chloride 102 mmol/L (98-107); Glucose 110 mg/dL (80-115); Potassium 4.6 mmol/L (3.5-5.1); Sodium 137 mmol/L (136-145)
[2020-12-10] MEDS: Aspirin Chewable 81 MG TAB PO SCH (09:49)
[2020-12-10] MEDS: Isosorbide Dinitrate 20 MG TAB PO SCH ×2 (09:50→20:52)
[2020-12-10] MEDS: hydrALAZINE 25 MG TAB PO SCH ×2 (09:50→20:52)
[2020-12-10] MEDS: Amlodipine 10 MG TAB PO SCH (09:50)
[2020-12-10] MEDS: Polyethylene Glycol 3350 17 GM Packet PER TUBE SCH (09:51)
[2020-12-10] MEDS: Pantoprazole 40 MG VIAL IVP SCH (09:52)
[2020-12-10] MEDS: Enoxaparin Sodium 40 MG/0.4 ML SYRINGE SC SCH (09:53)
[2020-12-10] MEDS: Docusate Sodium 100 MG/10 ML UDCUP PO SCH ×2 (10:16→20:52)
[2020-12-10 13:43] LABS: Prothrombin Time 13.7 sec (12.0-14.7)
[2020-12-10] MEDS: Dextrose 5 %-0.45 % NaCl 1,000 ML IV SCH (15:42)
[2020-12-11] MEDS: levETIRAcetam in NS 500 MG in Premix Bag 1 BAG IVPB SCH ×2 (02:42→15:05)
[2020-12-11] MEDS: Nitroglycerin 2% Ointment 1 INCH/1 GM Packet TOP SCH ×4 (02:43→20:45)
[2020-12-11] MEDS: Dextrose 5 %-0.45 % NaCl 1,000 ML IV SCH (02:43)
[2020-12-11 06:04] LABS: #Eosinphils 0.1 thou/uL (0.0-0.7); #Lymphocytes 1.5 thou/uL (1.20-3.40); #Monocytes 0.4 thou/uL (0.11-0.59); %Basophils 0.8 % (0.0-1.0); %Eosinophils 2.5 % (0.0-10.0); %Lymphocytes 28.8 % (21.0-51.0); %Monocytes 7.8 % (0.0-10.0); %Neutrophils 60.1 % (42.0-75.0); Hemoglobin 10.1 g/dL (14.0-18.0); Mean Corpuscular HGB CONC 31.9 g/dL (32.0-36.0); Mean Corpuscular Hemoglobin 32.1 pg (27.0-31.0); Mean Platelet Volume 7.3 fL (7.4-10.4); Platelet Count 440 thou/uL (130-400); RBC Distribution Width 12.1 % (11.5-14.5); Red Blood Cell (RBC) Count 3.15 mill/uL (4.70-6.10)
[2020-12-11] MEDS: Dextrose 50% Abboject 50 ML SYRINGE IVP PRN ×2 (06:04→16:55)
[2020-12-11 06:18] LABS: Anion Gap 15 mmol/L (10-20); BUN (Urea Nitrogen) 21 mg/dL (8.4-25.7); Calc. Creatinine Clearance 52 mL/min (70-130); Calcium 9.2 mg/dL (7.8-10.44); Carbon Dioxide 26 mmol/L (23-31); Chloride 102 mmol/L (98-107); Glucose 77 mg/dL (80-115); Potassium 4.9 mmol/L (3.5-5.1); Sodium 138 mmol/L (136-145)
[2020-12-11] MEDS: Pantoprazole 40 MG VIAL IVP SCH (08:05)
[2020-12-11] MEDS: Amlodipine 10 MG TAB PO SCH (08:05)
[2020-12-11] MEDS: hydrALAZINE 25 MG TAB PO SCH ×2 (08:05→20:44)
[2020-12-11] MEDS: Aspirin Chewable 81 MG TAB PO SCH (08:06)
[2020-12-11] MEDS: Isosorbide Dinitrate 20 MG TAB PO SCH ×2 (08:07→20:44)
[2020-12-11] MEDS: Docusate Sodium 100 MG/10 ML UDCUP PO SCH ×2 (08:07→20:44)
[2020-12-11] MEDS: Polyethylene Glycol 3350 17 GM Packet PER TUBE SCH (08:07)
[2020-12-11] MEDS ORDERED: PROPOFOL 200 MG/20 ML VIAL ONE (10:03)
[2020-12-11] MEDS ORDERED: Ondansetron HCl/PF 4 MG/2 ML Vial IVP PRN (12:25)
[2020-12-11] MEDS ORDERED: D5 1/2 NS w/40 mEq KCL 1,000 ML IV SCH (16:00)
[2020-12-12] MEDS: levETIRAcetam in NS 500 MG in Premix Bag 1 BAG IVPB SCH ×2 (02:03→15:38)
[2020-12-12] MEDS: Nitroglycerin 2% Ointment 1 INCH/1 GM Packet TOP SCH ×4 (02:04→20:55)
[2020-12-12 04:50] LABS: #Eosinphils 0.1 thou/uL (0.0-0.7); #Lymphocytes 1.2 thou/uL (1.20-3.40); #Monocytes 0.4 thou/uL (0.11-0.59); #Neutrophils 7.5 thou/uL (1.40-6.50); %Basophils 0.1 % (0.0-1.0); %Eosinophils 0.8 % (0.0-10.0); %Lymphocytes 12.9 % (21.0-51.0); %Monocytes 3.9 % (0.0-10.0); %Neutrophils 82.3 % (42.0-75.0); Hemoglobin 9.8 g/dL (14.0-18.0); Mean Corpuscular HGB CONC 32.8 g/dL (32.0-36.0); Mean Corpuscular Hemoglobin 32.4 pg (27.0-31.0); Mean Corpuscular Volume 98.8 fL (78.0-98.0); Mean Platelet Volume 7.6 fL (7.4-10.4); Platelet Count 421 thou/uL (130-400); RBC Distribution Width 12.1 % (11.5-14.5); Red Blood Cell (RBC) Count 3.02 mill/uL (4.70-6.10); White Blood Cell (WBC) Count 9.1 thou/uL (4.8-10.8)
[2020-12-12 05:10] LABS: Anion Gap 14 mmol/L (10-20); BUN (Urea Nitrogen) 22 mg/dL (8.4-25.7); Calc. Creatinine Clearance 49 mL/min (70-130); Calcium 9.1 mg/dL (7.8-10.44); Carbon Dioxide 23 mmol/L (23-31); Chloride 102 mmol/L (98-107); Glucose 93 mg/dL (80-115); Potassium 4.9 mmol/L (3.5-5.1); Sodium 134 mmol/L (136-145)
[2020-12-12] MEDS: Amlodipine 10 MG TAB PO SCH (08:47)
[2020-12-12] MEDS: hydrALAZINE 25 MG TAB PO SCH ×2 (08:47→20:55)
[2020-12-12] MEDS: Aspirin Chewable 81 MG TAB PO SCH (08:47)
[2020-12-12] MEDS: Polyethylene Glycol 3350 17 GM Packet PER TUBE SCH (08:47)
[2020-12-12] MEDS: Isosorbide Dinitrate 20 MG TAB PO SCH ×2 (08:47→20:55)
[2020-12-12] MEDS: Pantoprazole 40 MG VIAL IVP SCH (08:52)
[2020-12-12] MEDS: Docusate Sodium 100 MG/10 ML UDCUP PO SCH ×2 (08:56→20:58)
[2020-12-12] MEDS: Enoxaparin Sodium 40 MG/0.4 ML SYRINGE SC SCH (10:38)
[2020-12-13] MEDS: levETIRAcetam in NS 500 MG in Premix Bag 1 BAG IVPB SCH ×2 (02:33→16:06)
[2020-12-13] MEDS: Nitroglycerin 2% Ointment 1 INCH/1 GM Packet TOP SCH ×4 (02:34→21:23)
[2020-12-13] MEDS: Dextrose 50% Abboject 50 ML SYRINGE IVP PRN ×2 (02:43→12:44)
[2020-12-13 04:51] LABS: #Eosinphils 0.1 thou/uL (0.0-0.7); #Lymphocytes 1.5 thou/uL (1.20-3.40); #Monocytes 0.7 thou/uL (0.11-0.59); %Basophils 0.2 % (0.0-1.0); %Eosinophils 1.4 % (0.0-10.0); %Lymphocytes 20.3 % (21.0-51.0); %Monocytes 9.9 % (0.0-10.0); %Neutrophils 68.2 % (42.0-75.0); Mean Corpuscular HGB CONC 31.5 g/dL (32.0-36.0); Mean Corpuscular Hemoglobin 31.6 pg (27.0-31.0); Mean Platelet Volume 6.8 fL (7.4-10.4); Platelet Count 412 thou/uL (130-400); RBC Distribution Width 12.1 % (11.5-14.5); Red Blood Cell (RBC) Count 3.16 mill/uL (4.70-6.10); White Blood Cell (WBC) Count 7.3 thou/uL (4.8-10.8)
[2020-12-13 05:10] LABS: Anion Gap 15 mmol/L (10-20); BUN (Urea Nitrogen) 27 mg/dL (8.4-25.7); Calc. Creatinine Clearance 45 mL/min (70-130); Calcium 9.1 mg/dL (7.8-10.44); Carbon Dioxide 24 mmol/L (23-31); Chloride 101 mmol/L (98-107); Glucose 101 mg/dL (80-115); Potassium 4.6 mmol/L (3.5-5.1); Sodium 135 mmol/L (136-145)
[2020-12-13] MEDS: Docusate Sodium 100 MG/10 ML UDCUP PO SCH ×2 (09:14→21:23)
[2020-12-13] MEDS: Pantoprazole 40 MG VIAL IVP SCH (09:15)
[2020-12-13] MEDS: Amlodipine 10 MG TAB PO SCH (09:15)
[2020-12-13] MEDS: Polyethylene Glycol 3350 17 GM Packet PER TUBE SCH (09:15)
[2020-12-13] MEDS: Aspirin Chewable 81 MG TAB PO SCH (09:15)
[2020-12-13] MEDS: hydrALAZINE 25 MG TAB PO SCH ×2 (09:15→21:22)
[2020-12-13] MEDS: Enoxaparin Sodium 40 MG/0.4 ML SYRINGE SC SCH (09:15)
[2020-12-13] MEDS: Isosorbide Dinitrate 20 MG TAB PO SCH ×2 (09:16→21:22)
[2020-12-13] MEDS ORDERED: Sodium Chloride 0.9% 1,000 ML IV SCH (13:45)
[2020-12-14] MEDS: levETIRAcetam in NS 500 MG in Premix Bag 1 BAG IVPB SCH ×2 (02:47→15:29)
[2020-12-14] MEDS: Nitroglycerin 2% Ointment 1 INCH/1 GM Packet TOP SCH ×4 (02:49→20:22)
[2020-12-14 05:09] LABS: #Eosinphils 0.1 thou/uL (0.0-0.7); #Lymphocytes 1.2 thou/uL (1.20-3.40); #Monocytes 0.8 thou/uL (0.11-0.59); #Neutrophils 3.9 thou/uL (1.40-6.50); %Basophils 0.4 % (0.0-1.0); %Eosinophils 1.5 % (0.0-10.0); %Lymphocytes 20.1 % (21.0-51.0); %Monocytes 13.5 % (0.0-10.0); %Neutrophils 64.5 % (42.0-75.0); Hemoglobin 9.7 g/dL (14.0-18.0); Mean Corpuscular HGB CONC 32.6 g/dL (32.0-36.0); Mean Corpuscular Hemoglobin 32.3 pg (27.0-31.0); Mean Corpuscular Volume 99.2 fL (78.0-98.0); Mean Platelet Volume 7.7 fL (7.4-10.4); Platelet Count 342 thou/uL (130-400); RBC Distribution Width 12.1 % (11.5-14.5); White Blood Cell (WBC) Count 6.1 thou/uL (4.8-10.8)
[2020-12-14 05:19] LABS: Anion Gap 16 mmol/L (10-20); BUN (Urea Nitrogen) 29 mg/dL (8.4-25.7); Calc. Creatinine Clearance 66 mL/min (70-130); Calcium 8.6 mg/dL (7.8-10.44); Carbon Dioxide 21 mmol/L (23-31); Chloride 103 mmol/L (98-107); Glucose 63 mg/dL (80-115); Potassium 5.1 mmol/L (3.5-5.1); Sodium 135 mmol/L (136-145)
[2020-12-14] MEDS: Pantoprazole 40 MG VIAL IVP SCH (09:42)
[2020-12-14] MEDS: Docusate Sodium 100 MG/10 ML UDCUP PO SCH ×2 (09:43→20:22)
[2020-12-14] MEDS: hydrALAZINE 25 MG TAB PO SCH ×2 (09:43→20:22)
[2020-12-14] MEDS: Amlodipine 10 MG TAB PO SCH (09:43)
[2020-12-14] MEDS: Aspirin Chewable 81 MG TAB PO SCH (09:43)
[2020-12-14] MEDS: Enoxaparin Sodium 40 MG/0.4 ML SYRINGE SC SCH (09:43)
[2020-12-14] MEDS: Polyethylene Glycol 3350 17 GM Packet PER TUBE SCH (09:44)
[2020-12-14] MEDS: Isosorbide Dinitrate 20 MG TAB PO SCH ×2 (09:44→20:22)
[2020-12-14] MEDS: Dextrose 50% Abboject 50 ML SYRINGE IVP PRN (11:43)
[2020-12-15] MEDS: levETIRAcetam in NS 500 MG in Premix Bag 1 BAG IVPB SCH ×2 (03:14→14:54)
[2020-12-15] MEDS: Nitroglycerin 2% Ointment 1 INCH/1 GM Packet TOP SCH ×4 (03:14→23:28)
[2020-12-15 04:57] LABS: #Eosinphils 0.1 thou/uL (0.0-0.7); #Lymphocytes 1.1 thou/uL (1.20-3.40); #Monocytes 0.7 thou/uL (0.11-0.59); #Neutrophils 4.2 thou/uL (1.40-6.50); %Basophils 0.5 % (0.0-1.0); %Eosinophils 1.9 % (0.0-10.0); %Lymphocytes 18.2 % (21.0-51.0); %Monocytes 11.3 % (0.0-10.0); %Neutrophils 68.1 % (42.0-75.0); Hemoglobin 10.1 g/dL (14.0-18.0); Mean Corpuscular Hemoglobin 33.2 pg (27.0-31.0); Mean Platelet Volume 8.7 fL (7.4-10.4); Platelet Count 261 thou/uL (130-400); RBC Distribution Width 11.9 % (11.5-14.5); Red Blood Cell (RBC) Count 3.03 mill/uL (4.70-6.10); White Blood Cell (WBC) Count 6.2 thou/uL (4.8-10.8)
[2020-12-15 05:23] LABS: Calcium 7.5 mg/dL (7.8-10.44); Chloride 101 mmol/L (98-107); Sodium 133 mmol/L (136-145)
[2020-12-15 05:35] LABS: BUN (Urea Nitrogen) 24 mg/dL (8.4-25.7); Calc. Creatinine Clearance 60 mL/min (70-130); Carbon Dioxide 17 mmol/L (23-31); Glucose 79 mg/dL (80-115)
[2020-12-15 06:03] LABS: Anion Gap 20 mmol/L (10-20)
[2020-12-15] MEDS: Isosorbide Dinitrate 20 MG TAB PO SCH ×2 (09:10→23:27)
[2020-12-15] MEDS: Amlodipine 10 MG TAB PO SCH (09:10)
[2020-12-15] MEDS: Aspirin Chewable 81 MG TAB PO SCH (09:10)
[2020-12-15] MEDS: hydrALAZINE 25 MG TAB PO SCH ×2 (09:11→23:26)
[2020-12-15] MEDS: Docusate Sodium 100 MG/10 ML UDCUP PO SCH ×2 (09:11→23:32)
[2020-12-15] MEDS: Enoxaparin Sodium 40 MG/0.4 ML SYRINGE SC SCH (09:11)
[2020-12-15] MEDS: Polyethylene Glycol 3350 17 GM Packet PER TUBE SCH (09:12)
[2020-12-15] MEDS: Pantoprazole 40 MG VIAL IVP SCH (09:12)
[2020-12-15] MEDS: levETIRAcetam 500 mg/5 ml Oral Solution PO SCH (23:25)
[2020-12-16] MEDS: Nitroglycerin 2% Ointment 1 INCH/1 GM Packet TOP SCH ×3 (04:26→13:28)
[2020-12-16] MEDS ORDERED: Pantoprazole 40 MG GRANULES PACKET PER TUBE SCH (09:00)
[2020-12-16] MEDS: Aspirin Chewable 81 MG TAB PO SCH (10:21)
[2020-12-16] MEDS: Enoxaparin Sodium 40 MG/0.4 ML SYRINGE SC SCH (10:21)
[2020-12-16] MEDS: levETIRAcetam 500 mg/5 ml Oral Solution PO SCH (10:21)
[2020-12-16] MEDS: Isosorbide Dinitrate 20 MG TAB PO SCH (10:21)
[2020-12-16] MEDS: Docusate Sodium 100 MG/10 ML UDCUP PO SCH (10:22)
[2020-12-16] MEDS: Amlodipine 10 MG TAB PO SCH (10:22)
[2020-12-16] MEDS: hydrALAZINE 25 MG TAB PO SCH (10:22)
[2020-12-16] MEDS: Polyethylene Glycol 3350 17 GM Packet PER TUBE SCH (10:23)
[2020-12-16 13:07] VITALS: BP 126/71; TEMP 98.8
== END 2020-12-16 14:19 | DRG 922 ==
LOC: EDBD 15:36 → ERS 15:36 → CCU 18:52 → 2SE 12-01 16:40
PROVIDERS: ADMIT Internal Medicine; ATTEND Internal Medicine
PROC: 5A1955Z Respiratory Ventilation, Greater than 96 Consecutive Hours (ICD-10-PCS; principal; 2020-11-24)
PROC: 3E033XZ Introduction of Vasopressor into Peripheral Vein, Percutaneous Approach (ICD-10-PCS; 2020-11-24)
PROC: 0BH17EZ Insertion of Endotracheal Airway into Trachea, Via Natural or Artificial Opening (ICD-10-PCS; 2020-11-24)
PROC: 06HY33Z Insertion of Infusion Device into Lower Vein, Percutaneous Approach (ICD-10-PCS; 2020-11-24)
PROC: 0DH63UZ Insertion of Feeding Device into Stomach, Percutaneous Approach (ICD-10-PCS; 2020-12-11)
PROC: 0DB78ZX Excision of Stomach, Pylorus, Via Natural or Artificial Opening Endoscopic, Diagnostic (ICD-10-PCS; 2020-12-11)
DX: T68.XXXA Hypothermia, initial encounter (principal); J96.01 Acute respiratory failure with hypoxia; A41.9 Sepsis, unspecified organism; G93.41 Metabolic encephalopathy; R65.20 Severe sepsis without septic shock; R40.2112 Coma scale, eyes open, never, at arrival to emergency department; R40.2212 Coma scale, best verbal response, none, at arrival to emergency department; N17.9 Acute kidney failure, unspecified; M62.82 Rhabdomyolysis; E44.0 Moderate protein-calorie malnutrition; E87.2 Acidosis; E87.0 Hyperosmolality and hypernatremia; G81.94 Hemiplegia, unspecified affecting left nondominant side; G40.802 Other epilepsy, not intractable, without status epilepticus; R13.12 Dysphagia, oropharyngeal phase; I95.9 Hypotension, unspecified; I10 Essential (primary) hypertension; R00.1 Bradycardia, unspecified; R77.8 Other specified abnormalities of plasma proteins; K31.7 Polyp of stomach and duodenum; I34.0 Nonrheumatic mitral (valve) insufficiency; D64.9 Anemia, unspecified; E16.2 Hypoglycemia, unspecified; Q90.9 Down syndrome, unspecified; Z68.20 Body mass index [BMI] 20.0-20.9, adult; Z78.1 Physical restraint status; Z20.822 Contact with and (suspected) exposure to COVID-19; R40.2352 Coma scale, best motor response, localizes pain, at arrival to emergency department
CPT/HCPCS: 0240U; 31500; 36415; 36416; 36556; 36600; 51702; 70450; 71045; 74018; 76770; 80048; 80053; 80061; 80306; 80307; 81003; 81015; 82140; 82550; 82553; 82805; 83605; 83880; 84443; 84484; 85025; 85610; 85730; 87040; 87086; 88305; 88342; 93005; 93010; 93306; 94002; 94003; 95712; 95816; 95819; 95957; 96365; 96366; 96375; C9113; J0171; J0360; J0690; J0692; J1650; J1815; J1940; J1953; J2704; J3370; J3480; J3490; J7050; P9047; S0028

== ENCOUNTER 2021-04-03 21:48 | Emergency (ER) | payer MEDICARE, MEDICAID ==
[~2021-04-03 21:48] MED LIST: GASTROGRAFIN 30 ML BOT ONE
== END 2021-04-03 23:27 ==
LOC: ERS 21:48
DX: K94.23 Gastrostomy malfunction (principal); I10 Essential (primary) hypertension; G40.909 Epilepsy, unspecified, not intractable, without status epilepticus
CPT/HCPCS: 43762; 74018; Q9963

== ENCOUNTER 2021-06-28 22:00 | Inpatient (IN) | payer MEDICARE, MEDICAID ==
[2021-06-28] MEDS ORDERED: Cefepime 2 GM VIAL ONE (22:25)
[2021-06-28] MEDS ORDERED: Acetaminophen 650 MG Suppository ONE (22:25)
[2021-06-28 22:26] LABS: Hemoglobin 8.7 g/dL (14.0-18.0); Mean Corpuscular HGB CONC 32.4 g/dL (32.0-36.0); Mean Corpuscular Hemoglobin 30.9 pg (27.0-31.0); Mean Corpuscular Volume 95.3 fL (78.0-98.0); Mean Platelet Volume 7.5 fL (7.4-10.4); Platelet Count 185 thou/uL (130-400); RBC Distribution Width 15.2 % (11.5-14.5); Red Blood Cell (RBC) Count 2.81 mill/uL (4.70-6.10); White Blood Cell (WBC) Count 25.6 thou/uL (4.8-10.8)
[2021-06-28 22:36] LABS: Bilirubin Negative (Negative); Blood, Urine 3+ (Negative); Clarity Turbid (Clear); Glucose, Urine (Dipstick) Normal (Negative); Ketone, Urine Negative (Negative); Leukocyte 250 Leu/uL (Negative); Nitrite Negative (Negative); Protein, Urine (Dipstick) 100 mg/dL (Neg-Trace); RBC/HPF 21-50 HPF (0-3); Specific Gravity, Urine 1.019 (1.002-1.036)
[2021-06-28 22:47] LABS: ALT (SGPT) 22 U/L (8-55); AST (SGOT) 53 U/L (5-34); Albumin 2.7 g/dL (3.4-4.8); Alkaline Phosphatase 88 U/L (40-110); Anion Gap 16 mmol/L (10-20); BUN (Urea Nitrogen) 61 mg/dL (8.4-25.7); Bilirubin, Total 0.5 mg/dL (0.2-1.2); Calc. Creatinine Clearance 0 mL/min (70-130); Calcium 7.9 mg/dL (7.8-10.44); Carbon Dioxide 25 mmol/L (23-31); Chloride 101 mmol/L (98-107); Glucose 134 mg/dL (80-115); Potassium 4.1 mmol/L (3.5-5.1); Protein, Total 5.7 g/dL (5.8-8.1); Sodium 138 mmol/L (136-145)
[2021-06-28 22:51] LABS: Bacteria/HPF 2+ HPF (None Seen); Squamous Epithelial 0-3 HPF (0-3); WBC/HPF 21-50 HPF (0-3)
[2021-06-28 22:52] LABS: Calcium Oxalate Crystals Rare HPF (None Seen)
[2021-06-28 22:53] LABS: Band 20 % (5-11); Lymphocytes 3 % (21-51); MDiff Complete? YES; Metamyelocyte 3 % (0-0); Monocytes 6 % (0-10); Neutrophil 68 % (42-75); Vacuoles SLIGHT
[2021-06-28] MEDS ORDERED: Vancomycin 1 GM/200 ML BAG ONE (22:56)
[2021-06-28 23:08] LABS: CKMB 2.3 ng/mL (0-6.6)
[2021-06-28 23:20] LABS: SARS-CoV-2 NAA Rapid Test Not Detected (NotDetected)
[2021-06-29 01:30] LABS: Lactic Acid 2.4 mmol/L (0.5-2.2)
[2021-06-29 01:38] LABS: Troponin I 0.124 ng/mL (< 0.028)
[2021-06-29 03:38] VITALS: BMI 20.3
[2021-06-29] MEDS ORDERED: Sodium Chloride 0.9% 1,000 ML IV SCH (03:45)
[2021-06-29 04:33] LABS: Troponin I 0.233 ng/mL (< 0.028)
[2021-06-29] MEDS ORDERED: Acetaminophen 650 MG Suppository ONE ×2 (04:34→08:51)
[2021-06-29] MEDS: Acetaminophen 650 MG Suppository PR PRN ×2 (04:52→08:56)
[2021-06-29] MEDS ORDERED: Ondansetron PF 4 MG/2 ML Vial IVP PRN (10:09)
[2021-06-29 10:37] LABS: Hemoglobin 9.2 g/dL (14.0-18.0); Mean Corpuscular HGB CONC 32.2 g/dL (32.0-36.0); Mean Corpuscular Volume 96.4 fL (78.0-98.0); Mean Platelet Volume 7.6 fL (7.4-10.4); Platelet Count 175 thou/uL (130-400); RBC Distribution Width 15.1 % (11.5-14.5); Red Blood Cell (RBC) Count 2.96 mill/uL (4.70-6.10); White Blood Cell (WBC) Count 30.6 thou/uL (4.8-10.8)
[2021-06-29 10:58] LABS: Band 42 % (5-11); Lymphocytes 2 % (21-51); MDiff Complete? YES; Metamyelocyte 1 % (0-0); Monocytes 3 % (0-10); Neutrophil 52 % (42-75)
[2021-06-29] MEDS: Sodium Chloride 0.9% 1,000 ML IV SCH ×2 (11:00→14:36)
[2021-06-29 11:17] LABS: Bilirubin, Total 0.7 mg/dL (0.2-1.2); Calcium 8.1 mg/dL (7.8-10.44); Chloride 106 mmol/L (98-107); Sodium 139 mmol/L (136-145)
[2021-06-29 11:38] LABS: Anion Gap 14 mmol/L (10-20); BUN (Urea Nitrogen) 57 mg/dL (8.4-25.7); Calc. Creatinine Clearance 31 mL/min (70-130); Carbon Dioxide 24 mmol/L (23-31)
[2021-06-29 11:39] LABS: ALT (SGPT) 32 U/L (8-55); AST (SGOT) 68 U/L (5-34); Albumin 2.7 g/dL (3.4-4.8); Alkaline Phosphatase 94 U/L (40-110); Globulin 3.1 g/dL (2.4-3.5); Glucose 86 mg/dL (80-115); Protein, Total 5.8 g/dL (5.8-8.1)
[2021-06-29 12:33] LABS: Creatinine, Urine 88.92 mg/dL (63-166)
[2021-06-29] MEDS: Heparin 5,000 UNITS/ML VIAL SC SCH ×2 (14:43→20:45)
[2021-06-29] MEDS: Cefepime 2 GM in Sodium Chloride 0.9% 100 ML IVPB SCH (20:45)
[2021-06-29] MEDS: levETIRAcetam in NS 500 MG in Premix Bag 1 BAG IVPB SCH (21:19)
[2021-06-30] MEDS: Sodium Chloride 0.9% 1,000 ML IV SCH ×2 (00:44→11:55)
[2021-06-30 04:57] LABS: Hemoglobin 8.1 g/dL (14.0-18.0); Mean Corpuscular HGB CONC 30.5 g/dL (32.0-36.0); Mean Corpuscular Hemoglobin 30.1 pg (27.0-31.0); Mean Corpuscular Volume 98.8 fL (78.0-98.0); Mean Platelet Volume 8.9 fL (7.4-10.4); Platelet Count 146 thou/uL (130-400); RBC Distribution Width 14.9 % (11.5-14.5); Red Blood Cell (RBC) Count 2.68 mill/uL (4.70-6.10); White Blood Cell (WBC) Count 25.1 thou/uL (4.8-10.8)
[2021-06-30 05:05] LABS: Anion Gap 13 mmol/L (10-20); BUN (Urea Nitrogen) 55 mg/dL (8.4-25.7); Calc. Creatinine Clearance 57 mL/min (70-130); Calcium 7.9 mg/dL (7.8-10.44); Carbon Dioxide 21 mmol/L (23-31); Chloride 111 mmol/L (98-107); Glucose 134 mg/dL (80-115); Magnesium 2.1 mg/dL (1.6-2.6); Potassium 3.7 mmol/L (3.5-5.1); Sodium 141 mmol/L (136-145)
[2021-06-30 06:50] LABS: Band 17 % (5-11); Eosinophils 2 % (0-10); Lymphocytes 8 % (21-51); MDiff Complete? YES; Monocytes 3 % (0-10); Neutrophil 70 % (42-75)
[2021-06-30] MEDS: Cefepime 2 GM in Sodium Chloride 0.9% 100 ML IVPB SCH ×2 (08:23→20:29)
[2021-06-30] MEDS: Heparin 5,000 UNITS/ML VIAL SC SCH ×3 (08:24→20:29)
[2021-06-30] MEDS: levETIRAcetam in NS 500 MG in Premix Bag 1 BAG IVPB SCH ×2 (09:44→20:29)
[2021-06-30 13:42] LABS: Magnesium 2.1 mg/dL (1.6-2.6)
[2021-07-01] MEDS: Sodium Chloride 0.9% 1,000 ML IV SCH ×2 (04:06→19:49)
[2021-07-01] MEDS: Ascorbic Acid 500 mg Chewable Tablet PO SCH (08:54)
[2021-07-01] MEDS: Cefepime 2 GM in Sodium Chloride 0.9% 100 ML IVPB SCH ×2 (08:54→20:57)
[2021-07-01] MEDS: Aspirin Chewable 81 MG TAB PO SCH (08:54)
[2021-07-01] MEDS: Heparin 5,000 UNITS/ML VIAL SC SCH ×3 (08:54→20:57)
[2021-07-01] MEDS: levETIRAcetam in NS 500 MG in Premix Bag 1 BAG IVPB SCH ×2 (08:57→20:57)
[2021-07-01 10:42] LABS: Hemoglobin 9.1 g/dL (14.0-18.0); Mean Corpuscular HGB CONC 29.9 g/dL (32.0-36.0); Mean Corpuscular Hemoglobin 29.3 pg (27.0-31.0); Mean Corpuscular Volume 98.3 fL (78.0-98.0); Mean Platelet Volume 8.5 fL (7.4-10.4); Platelet Count 183 thou/uL (130-400); RBC Distribution Width 14.9 % (11.5-14.5); White Blood Cell (WBC) Count 15.6 thou/uL (4.8-10.8)
[2021-07-01 10:52] LABS: Anion Gap 10 mmol/L (10-20); BUN (Urea Nitrogen) 44 mg/dL (8.4-25.7); Calc. Creatinine Clearance 79 mL/min (70-130); Calcium 7.9 mg/dL (7.8-10.44); Carbon Dioxide 27 mmol/L (23-31); Chloride 109 mmol/L (98-107); Glucose 111 mg/dL (80-115); Potassium 3.7 mmol/L (3.5-5.1); Sodium 142 mmol/L (136-145)
[2021-07-01 11:38] LABS: Band 25 % (5-11); Eosinophils 5 % (0-10); Lymphocytes 5 % (21-51); MDiff Complete? YES; Monocytes 3 % (0-10); Neutrophil 61 % (42-75); Platelet Morphology Comment Appears Adequate; Polychromasia SLIGHT = 2-3 cells (100X) (0-2/hpf); Reactive Lymphocytes 1 % (0-10)
[2021-07-02 05:06] LABS: Hemoglobin 9.5 g/dL (14.0-18.0); Mean Corpuscular Hemoglobin 30.3 pg (27.0-31.0); Mean Corpuscular Volume 97.8 fL (78.0-98.0); Mean Platelet Volume 8.8 fL (7.4-10.4); Platelet Count 205 thou/uL (130-400); RBC Distribution Width 14.8 % (11.5-14.5); Red Blood Cell (RBC) Count 3.12 mill/uL (4.70-6.10); White Blood Cell (WBC) Count 14.9 thou/uL (4.8-10.8)
[2021-07-02 05:48] LABS: BUN (Urea Nitrogen) 30 mg/dL (8.4-25.7); Calc. Creatinine Clearance 80 mL/min (70-130); Calcium 8.2 mg/dL (7.8-10.44); Carbon Dioxide 26 mmol/L (23-31); Chloride 108 mmol/L (98-107); Glucose 69 mg/dL (80-115); Potassium 3.9 mmol/L (3.5-5.1); Sodium 141 mmol/L (136-145)
[2021-07-02 05:56] LABS: Anion Gap 11 mmol/L (10-20)
[2021-07-02 06:33] LABS: Band 22 % (5-11); Eosinophils 3 % (0-10); Lymphocytes 14 % (21-51); MDiff Complete? YES; Monocytes 3 % (0-10); Neutrophil 57 % (42-75); Reactive Lymphocytes 1 % (0-10)
[2021-07-02] MEDS: Heparin 5,000 UNITS/ML VIAL SC SCH ×3 (08:58→22:02)
[2021-07-02] MEDS: levETIRAcetam in NS 500 MG in Premix Bag 1 BAG IVPB SCH ×2 (08:58→22:02)
[2021-07-02] MEDS: Ascorbic Acid 500 mg Chewable Tablet PO SCH (09:01)
[2021-07-02] MEDS: Aspirin Chewable 81 MG TAB PO SCH (09:01)
[2021-07-02] MEDS: Cefepime 2 GM in Sodium Chloride 0.9% 100 ML IVPB SCH ×2 (09:34→22:02)
[2021-07-02] MEDS: Sodium Chloride 0.9% 1,000 ML IV SCH ×2 (10:39→23:16)
[2021-07-03 05:37] LABS: Hemoglobin 9.2 g/dL (14.0-18.0); Mean Corpuscular HGB CONC 31.8 g/dL (32.0-36.0); Mean Corpuscular Hemoglobin 30.8 pg (27.0-31.0); Mean Platelet Volume 8.7 fL (7.4-10.4); Platelet Count 242 thou/uL (130-400); RBC Distribution Width 14.7 % (11.5-14.5); Red Blood Cell (RBC) Count 2.98 mill/uL (4.70-6.10); White Blood Cell (WBC) Count 17.6 thou/uL (4.8-10.8)
[2021-07-03 06:04] LABS: Anion Gap 14 mmol/L (10-20); BUN (Urea Nitrogen) 25 mg/dL (8.4-25.7); Calc. Creatinine Clearance 90 mL/min (70-130); Carbon Dioxide 23 mmol/L (23-31); Chloride 104 mmol/L (98-107); Glucose 123 mg/dL (80-115); Potassium 4.1 mmol/L (3.5-5.1); Sodium 137 mmol/L (136-145)
[2021-07-03 06:15] LABS: Band 17 % (5-11); Eosinophils 5 % (0-10); Lymphocytes 18 % (21-51); MDiff Complete? YES; Monocytes 7 % (0-10); Myelocyte 3 % (0-0); Neutrophil 49 % (42-75); Nucleated RBC 1 % (0); Reactive Lymphocytes 1 % (0-10)
[2021-07-03] MEDS: Ascorbic Acid 500 mg Chewable Tablet PO SCH (08:38)
[2021-07-03] MEDS: Sodium Chloride 0.9% 1,000 ML IV SCH (08:38)
[2021-07-03] MEDS: Cefepime 2 GM in Sodium Chloride 0.9% 100 ML IVPB SCH ×2 (08:38→22:41)
[2021-07-03] MEDS: Heparin 5,000 UNITS/ML VIAL SC SCH ×3 (08:38→21:52)
[2021-07-03] MEDS: Aspirin Chewable 81 MG TAB PO SCH (08:38)
[2021-07-03] MEDS: levETIRAcetam in NS 500 MG in Premix Bag 1 BAG IVPB SCH ×2 (08:55→22:41)
[2021-07-03] MEDS: Vancomycin 1 GM in Premix Bag 1 BAG IVPB SCH ×2 (10:58→21:52)
[2021-07-03] MEDS: Acetaminophen 650 MG Suppository PR PRN (11:41)
[2021-07-04] MEDS: Sodium Chloride 0.9% 1,000 ML IV SCH ×2 (06:26→15:45)
[2021-07-04] MEDS: Vancomycin 1 GM in Premix Bag 1 BAG IVPB SCH ×2 (07:21→21:45)
[2021-07-04] MEDS: Cefepime 2 GM in Sodium Chloride 0.9% 100 ML IVPB SCH (07:22)
[2021-07-04] MEDS: Aspirin Chewable 81 MG TAB PO SCH (07:22)
[2021-07-04] MEDS: Ascorbic Acid 500 mg Chewable Tablet PO SCH (07:22)
[2021-07-04] MEDS: Heparin 5,000 UNITS/ML VIAL SC SCH ×3 (07:23→21:41)
[2021-07-04] MEDS: levETIRAcetam in NS 500 MG in Premix Bag 1 BAG IVPB SCH ×2 (07:42→21:45)
[2021-07-04] MEDS ORDERED: Iopamidol 370 76% 50 ML VIAL FS ONE (09:57)
[2021-07-04] MEDS ORDERED: Iopamidol-370 76% 500 ML 1 ML ONE (09:57)
[2021-07-04 11:37] LABS: Hemoglobin 9.5 g/dL (14.0-18.0); Mean Corpuscular HGB CONC 33.2 g/dL (32.0-36.0); Mean Corpuscular Hemoglobin 32.1 pg (27.0-31.0); Mean Corpuscular Volume 96.6 fL (78.0-98.0); Mean Platelet Volume 8.1 fL (7.4-10.4); Platelet Count 328 thou/uL (130-400); RBC Distribution Width 14.9 % (11.5-14.5); Red Blood Cell (RBC) Count 2.95 mill/uL (4.70-6.10); White Blood Cell (WBC) Count 20.8 thou/uL (4.8-10.8)
[2021-07-04 11:54] LABS: Anion Gap 10 mmol/L (10-20); BUN (Urea Nitrogen) 28 mg/dL (8.4-25.7); Calc. Creatinine Clearance 86 mL/min (70-130); Calcium 8.2 mg/dL (7.8-10.44); Carbon Dioxide 27 mmol/L (23-31); Chloride 104 mmol/L (98-107); Glucose 120 mg/dL (80-115); Potassium 4.7 mmol/L (3.5-5.1); Sodium 136 mmol/L (136-145)
[2021-07-04 12:04] LABS: Band 12 % (5-11); Eosinophils 3 % (0-10); Lymphocytes 15 % (21-51); MDiff Complete? YES; Metamyelocyte 2 % (0-0); Monocytes 5 % (0-10); Myelocyte 2 % (0-0); Neutrophil 58 % (42-75); Platelet Morphology Comment Appears Adequate; Polychromasia SLIGHT = 2-3 cells (100X) (0-2/hpf); Reactive Lymphocytes 3 % (0-10)
[2021-07-04] MEDS ORDERED: MEROPENEM 1 GM/50 ML 1 GM in Premix Bag 1 BAG IVPB SCH (14:00)
[2021-07-04] MEDS ORDERED: Floranex 1 GM Packet PO SCH (14:00)
[2021-07-04] MEDS: MEROPENEM 1 GM/50 ML 1 GM in Premix Bag 1 BAG IVPB SCH (22:23)
[2021-07-05] MEDS: MEROPENEM 1 GM/50 ML 1 GM in Premix Bag 1 BAG IVPB SCH ×3 (06:21→20:08)
[2021-07-05] MEDS: levETIRAcetam in NS 500 MG in Premix Bag 1 BAG IVPB SCH ×2 (08:54→20:08)
[2021-07-05] MEDS: Heparin 5,000 UNITS/ML VIAL SC SCH ×3 (09:58→20:09)
[2021-07-05] MEDS: Ascorbic Acid 500 mg Chewable Tablet PO SCH (09:59)
[2021-07-05] MEDS: Vancomycin 1 GM in Premix Bag 1 BAG IVPB SCH ×2 (09:59→20:07)
[2021-07-05] MEDS: Aspirin Chewable 81 MG TAB PO SCH (09:59)
[2021-07-05] MEDS: Floranex 1 GM Packet PO SCH (09:59)
[2021-07-05 16:02] LABS: Hemoglobin 12.7 g/dL (14.0-18.0); Mean Corpuscular Hemoglobin 30.2 pg (27.0-31.0); Mean Corpuscular Volume 97.4 fL (78.0-98.0); Platelet Count 456 thou/uL (130-400); RBC Distribution Width 15.2 % (11.5-14.5); White Blood Cell (WBC) Count 15.8 thou/uL (4.8-10.8)
[2021-07-05 16:06] LABS: Anion Gap 16 mmol/L (10-20); BUN (Urea Nitrogen) 25 mg/dL (8.4-25.7); Calc. Creatinine Clearance 82 mL/min (70-130); Carbon Dioxide 25 mmol/L (23-31); Chloride 101 mmol/L (98-107); Glucose 71 mg/dL (80-115); Potassium 5.6 mmol/L (3.5-5.1); Sodium 136 mmol/L (136-145)
[2021-07-05 16:20] LABS: Band 8 % (5-11); Eosinophils 1 % (0-10); Lymphocytes 13 % (21-51); MDiff Complete? YES; Monocytes 1 % (0-10); Myelocyte 2 % (0-0); Neutrophil 72 % (42-75); Platelet Morphology Comment Appears Increased; Polychromasia SLIGHT = 2-3 cells (100X) (0-2/hpf); Reactive Lymphocytes 3 % (0-10)
[2021-07-05 18:04] LABS: Anion Gap 10 mmol/L (10-20); BUN (Urea Nitrogen) 25 mg/dL (8.4-25.7); Calc. Creatinine Clearance 86 mL/min (70-130); Carbon Dioxide 24 mmol/L (23-31); Chloride 103 mmol/L (98-107); Glucose 107 mg/dL (80-115); Sodium 132 mmol/L (136-145)
[2021-07-05] MEDS: hydrALAZINE 25 MG TAB PO SCH (20:07)
[2021-07-05] MEDS: Isosorbide Dinitrate 5 MG TAB PO SCH (20:07)
[2021-07-05] MEDS ORDERED: levETIRAcetam 500 mg/5 ml Oral Solution PO SCH (21:00)
[2021-07-05] MEDS: Sodium Chloride 0.9% 1,000 ML IV SCH ×2 (22:07)
[2021-07-06 05:20] LABS: Anion Gap 11 mmol/L (10-20); BUN (Urea Nitrogen) 25 mg/dL (8.4-25.7); Calc. Creatinine Clearance 82 mL/min (70-130); Calcium 8.9 mg/dL (7.8-10.44); Carbon Dioxide 24 mmol/L (23-31); Chloride 102 mmol/L (98-107); Glucose 78 mg/dL (80-115); Potassium 5.2 mmol/L (3.5-5.1); Sodium 132 mmol/L (136-145)
[2021-07-06 05:30] LABS: Hemoglobin 10.3 g/dL (14.0-18.0); Mean Corpuscular HGB CONC 32.6 g/dL (32.0-36.0); Mean Corpuscular Hemoglobin 31.6 pg (27.0-31.0); Mean Corpuscular Volume 96.8 fL (78.0-98.0); Platelet Count 503 thou/uL (130-400); RBC Distribution Width 15.1 % (11.5-14.5); Red Blood Cell (RBC) Count 3.26 mill/uL (4.70-6.10); White Blood Cell (WBC) Count 21.5 thou/uL (4.8-10.8)
[2021-07-06 05:31] LABS: Anisocytosis SLIGHT = 6-15 cells (100X) (0-5/hpf); Band 5 % (5-11); Eosinophils 3 % (0-10); Lymphocytes 8 % (21-51); MDiff Complete? YES; Metamyelocyte 1 % (0-0); Monocytes 6 % (0-10); Myelocyte 2 % (0-0); Neutrophil 72 % (42-75); Platelet Morphology Comment Appears Increased; Reactive Lymphocytes 3 % (0-10)
[2021-07-06] MEDS: MEROPENEM 1 GM/50 ML 1 GM in Premix Bag 1 BAG IVPB SCH ×3 (05:52→21:42)
[2021-07-06] MEDS: hydrALAZINE 25 MG TAB PO SCH ×2 (08:44→21:40)
[2021-07-06] MEDS: Floranex 1 GM Packet PO SCH (08:44)
[2021-07-06] MEDS: Aspirin Chewable 81 MG TAB PO SCH (08:44)
[2021-07-06] MEDS: Vancomycin 1 GM in Premix Bag 1 BAG IVPB SCH ×2 (08:44→21:27)
[2021-07-06] MEDS: Heparin 5,000 UNITS/ML VIAL SC SCH ×3 (08:44→21:53)
[2021-07-06] MEDS: Isosorbide Dinitrate 5 MG TAB PO SCH ×2 (08:44→21:42)
[2021-07-06] MEDS: Ascorbic Acid 500 mg Chewable Tablet PO SCH (08:44)
[2021-07-06] MEDS: levETIRAcetam in NS 500 MG in Premix Bag 1 BAG IVPB SCH ×2 (09:33→21:44)
[2021-07-06] MEDS: Sodium Chloride 0.9% 1,000 ML IV SCH (11:36)
[2021-07-06 15:47] LABS: Prothrombin Time 13.3 sec (12.0-14.7)
[2021-07-06 15:48] LABS: PTT 35.4 sec (22.9-36.1)
[2021-07-06 21:03] LABS: Vancomycin, Trough 29.3 ug/mL
[2021-07-07] MEDS: Sodium Chloride 0.9% 1,000 ML IV SCH ×2 (01:24→15:03)
[2021-07-07] MEDS: MEROPENEM 1 GM/50 ML 1 GM in Premix Bag 1 BAG IVPB SCH ×3 (05:34→21:51)
[2021-07-07] MEDS: Floranex 1 GM Packet PO SCH (10:04)
[2021-07-07] MEDS: Ascorbic Acid 500 mg Chewable Tablet PO SCH (10:04)
[2021-07-07] MEDS: hydrALAZINE 25 MG TAB PO SCH ×2 (10:04→21:51)
[2021-07-07] MEDS: levETIRAcetam in NS 500 MG in Premix Bag 1 BAG IVPB SCH ×2 (10:04→20:51)
[2021-07-07] MEDS: Isosorbide Dinitrate 5 MG TAB PO SCH ×2 (10:04→21:51)
[2021-07-07] MEDS: Aspirin Chewable 81 MG TAB PO SCH (10:04)
[2021-07-07] MEDS: Heparin 5,000 UNITS/ML VIAL SC SCH ×3 (10:28→21:51)
[2021-07-07] MEDS ORDERED: Bacitracin 1 PK TOP SCH ×2 (13:30→21:00)
[2021-07-07] MEDS ORDERED: Vancomycin HCl 500 MG in Sodium Chloride 0.9% 100 ML IVPB SCH (15:00)
[2021-07-07] MEDS: Vancomycin HCl 500 MG in Sodium Chloride 0.9% 100 ML IVPB SCH (17:47)
[2021-07-07] MEDS: Bacitracin 1 PK TOP SCH (21:51)
[2021-07-07] MEDS: Nystatin 500,000 UNITS/5 ML UDCUP SSW SCH (22:26)
[2021-07-08 05:17] LABS: #Eosinphils 0.7 thou/uL (0.0-0.7); #Lymphocytes 2.4 thou/uL (1.20-3.40); #Monocytes 0.6 thou/uL (0.11-0.59); %Basophils 0.1 % (0.0-1.0); %Eosinophils 4.7 % (0.0-10.0); %Lymphocytes 16.3 % (21.0-51.0); %Monocytes 3.8 % (0.0-10.0); Hemoglobin 9.6 g/dL (14.0-18.0); Mean Corpuscular HGB CONC 31.9 g/dL (32.0-36.0); Mean Corpuscular Volume 97.4 fL (78.0-98.0); Mean Platelet Volume 7.3 fL (7.4-10.4); Platelet Count 577 thou/uL (130-400); RBC Distribution Width 15.2 % (11.5-14.5); Red Blood Cell (RBC) Count 3.09 mill/uL (4.70-6.10); White Blood Cell (WBC) Count 14.6 thou/uL (4.8-10.8)
[2021-07-08 05:35] LABS: Anion Gap 12 mmol/L (10-20); BUN (Urea Nitrogen) 21 mg/dL (8.4-25.7); Calc. Creatinine Clearance 82 mL/min (70-130); Calcium 8.7 mg/dL (7.8-10.44); Carbon Dioxide 23 mmol/L (23-31); Chloride 104 mmol/L (98-107); Glucose 62 mg/dL (80-115); Potassium 5.4 mmol/L (3.5-5.1); Sodium 134 mmol/L (136-145)
[2021-07-08] MEDS: MEROPENEM 1 GM/50 ML 1 GM in Premix Bag 1 BAG IVPB SCH ×2 (05:58→13:22)
[2021-07-08] MEDS: Vancomycin HCl 500 MG in Sodium Chloride 0.9% 100 ML IVPB SCH ×2 (05:59→17:00)
[2021-07-08] MEDS ORDERED: Sodium Bicarbonate 2.5 MEQ/5 ML VIAL ONE (09:05)
[2021-07-08] MEDS: Isosorbide Dinitrate 5 MG TAB PO SCH ×2 (10:15→21:17)
[2021-07-08] MEDS: Aspirin Chewable 81 MG TAB PO SCH (10:15)
[2021-07-08] MEDS: hydrALAZINE 25 MG TAB PO SCH ×2 (10:15→21:17)
[2021-07-08] MEDS: Floranex 1 GM Packet PO SCH (10:15)
[2021-07-08] MEDS: Ascorbic Acid 500 mg Chewable Tablet PO SCH (10:15)
[2021-07-08] MEDS: levETIRAcetam in NS 500 MG in Premix Bag 1 BAG IVPB SCH ×2 (10:16→20:55)
[2021-07-08] MEDS: Bacitracin 1 PK TOP SCH ×2 (10:16→21:17)
[2021-07-08] MEDS: Nystatin 500,000 UNITS/5 ML UDCUP SSW SCH ×4 (10:19→21:17)
[2021-07-08] MEDS: Heparin 5,000 UNITS/ML VIAL SC SCH ×3 (10:25→21:17)
[2021-07-08] MEDS: Sodium Chloride 0.9% 1,000 ML IV SCH (10:50)
[2021-07-08 11:44] LABS: RBC Count-Automated (BF) 85349 /cu.mm; WBC/Nucleated-Auto (BF) 672 uL
[2021-07-08 11:51] LABS: BF Color Red; Clarity Cloudy/Turbid (Clear)
[2021-07-08 11:57] LABS: BF Segmented Neutrophils 89 %; Cell Count Non Hematic 2 %; Eosinophils 2 %; Lymphocytes 7 %
[2021-07-08 16:51] LABS: SARS-CoV-2 PCR by NAA Not Detected (NotDetected)
[2021-07-09] MEDS: MEROPENEM 1 GM/50 ML 1 GM in Premix Bag 1 BAG IVPB SCH ×3 (00:33→16:00)
[2021-07-09 05:54] LABS: Vancomycin, Trough 21.1 ug/mL
[2021-07-09] MEDS: Vancomycin HCl 500 MG in Sodium Chloride 0.9% 100 ML IVPB SCH (06:01)
[2021-07-09] MEDS: Aspirin Chewable 81 MG TAB PO SCH (08:55)
[2021-07-09] MEDS: levETIRAcetam in NS 500 MG in Premix Bag 1 BAG IVPB SCH ×2 (08:55→20:57)
[2021-07-09] MEDS: Isosorbide Dinitrate 5 MG TAB PO SCH ×2 (08:55→20:59)
[2021-07-09] MEDS: Nystatin 500,000 UNITS/5 ML UDCUP SSW SCH ×4 (08:55→20:31)
[2021-07-09] MEDS: hydrALAZINE 25 MG TAB PO SCH ×2 (08:55→20:32)
[2021-07-09] MEDS: Floranex 1 GM Packet PO SCH (08:55)
[2021-07-09] MEDS: Ascorbic Acid 500 mg Chewable Tablet PO SCH (08:55)
[2021-07-09] MEDS: Bacitracin 1 PK TOP SCH ×2 (08:55→20:59)
[2021-07-09] MEDS: Heparin 5,000 UNITS/ML VIAL SC SCH ×3 (08:56→20:31)
[2021-07-10] MEDS: MEROPENEM 1 GM/50 ML 1 GM in Premix Bag 1 BAG IVPB SCH ×3 (01:37→16:13)
[2021-07-10] MEDS ORDERED: Vancomycin HCl 750 MG in Sodium Chloride 0.9% 250 ML 250 ML IVPB SCH (06:00)
[2021-07-10] MEDS: Ascorbic Acid 500 mg Chewable Tablet PO SCH (09:16)
[2021-07-10] MEDS: Floranex 1 GM Packet PO SCH (09:16)
[2021-07-10] MEDS: Isosorbide Dinitrate 5 MG TAB PO SCH ×2 (09:16→21:05)
[2021-07-10] MEDS: Nystatin 500,000 UNITS/5 ML UDCUP SSW SCH ×4 (09:16→21:05)
[2021-07-10] MEDS: hydrALAZINE 25 MG TAB PO SCH ×2 (09:16→21:05)
[2021-07-10] MEDS: Aspirin Chewable 81 MG TAB PO SCH (09:16)
[2021-07-10] MEDS: levETIRAcetam in NS 500 MG in Premix Bag 1 BAG IVPB SCH ×2 (09:17→21:50)
[2021-07-10] MEDS: Heparin 5,000 UNITS/ML VIAL SC SCH ×3 (09:19→21:05)
[2021-07-10] MEDS: Bacitracin 1 PK TOP SCH ×2 (10:39→21:05)
[2021-07-11] MEDS: MEROPENEM 1 GM/50 ML 1 GM in Premix Bag 1 BAG IVPB SCH ×3 (00:56→17:09)
[2021-07-11] MEDS: Heparin 5,000 UNITS/ML VIAL SC SCH ×3 (09:24→20:10)
[2021-07-11] MEDS: Bacitracin 1 PK TOP SCH ×2 (09:24→20:10)
[2021-07-11] MEDS: Ascorbic Acid 500 mg Chewable Tablet PO SCH (09:25)
[2021-07-11] MEDS: Floranex 1 GM Packet PO SCH (09:26)
[2021-07-11] MEDS: Isosorbide Dinitrate 5 MG TAB PO SCH ×2 (09:26→20:10)
[2021-07-11] MEDS: hydrALAZINE 25 MG TAB PO SCH ×2 (09:26→20:10)
[2021-07-11] MEDS: Aspirin Chewable 81 MG TAB PO SCH (09:26)
[2021-07-11] MEDS: levETIRAcetam in NS 500 MG in Premix Bag 1 BAG IVPB SCH ×2 (09:29→20:11)
[2021-07-11] MEDS: Nystatin 500,000 UNITS/5 ML UDCUP SSW SCH ×4 (09:30→20:10)
[2021-07-12] MEDS: MEROPENEM 1 GM/50 ML 1 GM in Premix Bag 1 BAG IVPB SCH ×3 (00:09→16:00)
[2021-07-12] MEDS ORDERED: Dextrose 5% in Water 1,000 ML IV PRN (00:10)
[2021-07-12] MEDS ORDERED: Dextrose 50% Abboject 50 ML SYRINGE ONE (00:14)
[2021-07-12] MEDS: Dextrose 50% Abboject 50 ML SYRINGE SLOW IVP PRN ×2 (00:15→03:59)
[2021-07-12 04:44] LABS: #Eosinphils 0.7 thou/uL (0.0-0.7); #Lymphocytes 1.7 thou/uL (1.20-3.40); #Monocytes 0.5 thou/uL (0.11-0.59); #Neutrophils 4.2 thou/uL (1.40-6.50); %Basophils 0.6 % (0.0-1.0); %Eosinophils 9.1 % (0.0-10.0); %Lymphocytes 24.2 % (21.0-51.0); %Monocytes 7.4 % (0.0-10.0); %Neutrophils 58.7 % (42.0-75.0); Hemoglobin 10.4 g/dL (14.0-18.0); Mean Corpuscular HGB CONC 31.6 g/dL (32.0-36.0); Mean Corpuscular Hemoglobin 30.9 pg (27.0-31.0); Mean Corpuscular Volume 97.9 fL (78.0-98.0); Mean Platelet Volume 6.4 fL (7.4-10.4); Platelet Count 660 thou/uL (130-400); RBC Distribution Width 15.4 % (11.5-14.5); Red Blood Cell (RBC) Count 3.36 mill/uL (4.70-6.10); White Blood Cell (WBC) Count 7.2 thou/uL (4.8-10.8)
[2021-07-12 04:58] LABS: Anion Gap 11 mmol/L (10-20); BUN (Urea Nitrogen) 31 mg/dL (8.4-25.7); Calc. Creatinine Clearance 69 mL/min (70-130); Calcium 9.2 mg/dL (7.8-10.44); Carbon Dioxide 26 mmol/L (23-31); Chloride 102 mmol/L (98-107); Glucose 185 mg/dL (80-115); Potassium 4.6 mmol/L (3.5-5.1); Sodium 134 mmol/L (136-145)
[2021-07-12] MEDS: Floranex 1 GM Packet PO SCH (09:32)
[2021-07-12] MEDS: Isosorbide Dinitrate 5 MG TAB PO SCH ×2 (09:32→20:34)
[2021-07-12] MEDS: Ascorbic Acid 500 mg Chewable Tablet PO SCH (09:34)
[2021-07-12] MEDS: Nystatin 500,000 UNITS/5 ML UDCUP SSW SCH ×4 (09:34→20:35)
[2021-07-12] MEDS: hydrALAZINE 25 MG TAB PO SCH ×2 (09:34→20:34)
[2021-07-12] MEDS: Heparin 5,000 UNITS/ML VIAL SC SCH ×3 (09:35→21:43)
[2021-07-12] MEDS: levETIRAcetam in NS 500 MG in Premix Bag 1 BAG IVPB SCH ×2 (09:36→20:37)
[2021-07-12] MEDS: Bacitracin 1 PK TOP SCH ×2 (09:44→21:47)
[2021-07-12] MEDS: Aspirin Chewable 81 MG TAB PO SCH (09:44)
[2021-07-13] MEDS: MEROPENEM 1 GM/50 ML 1 GM in Premix Bag 1 BAG IVPB SCH ×3 (01:20→16:07)
[2021-07-13] MEDS: Floranex 1 GM Packet PO SCH (09:12)
[2021-07-13] MEDS: hydrALAZINE 25 MG TAB PO SCH ×2 (09:15→20:12)
[2021-07-13] MEDS: Nystatin 500,000 UNITS/5 ML UDCUP SSW SCH ×4 (09:15→20:12)
[2021-07-13] MEDS: Ascorbic Acid 500 mg Chewable Tablet PO SCH (09:15)
[2021-07-13] MEDS: Isosorbide Dinitrate 5 MG TAB PO SCH ×2 (09:16→20:12)
[2021-07-13] MEDS: Aspirin Chewable 81 MG TAB PO SCH (09:16)
[2021-07-13] MEDS: levETIRAcetam in NS 500 MG in Premix Bag 1 BAG IVPB SCH ×2 (09:22→20:11)
[2021-07-13] MEDS: Heparin 5,000 UNITS/ML VIAL SC SCH ×3 (09:24→20:30)
[2021-07-13] MEDS: Bacitracin 1 PK TOP SCH ×2 (10:12→20:12)
[2021-07-14] MEDS: MEROPENEM 1 GM/50 ML 1 GM in Premix Bag 1 BAG IVPB SCH ×3 (00:05→16:00)
[2021-07-14] MEDS: levETIRAcetam in NS 500 MG in Premix Bag 1 BAG IVPB SCH ×2 (09:22→20:07)
[2021-07-14] MEDS: Floranex 1 GM Packet PO SCH (09:31)
[2021-07-14] MEDS: hydrALAZINE 25 MG TAB PO SCH ×2 (09:32→20:06)
[2021-07-14] MEDS: Isosorbide Dinitrate 5 MG TAB PO SCH ×2 (09:32→20:07)
[2021-07-14] MEDS: Ascorbic Acid 500 mg Chewable Tablet PO SCH (09:33)
[2021-07-14] MEDS: Nystatin 500,000 UNITS/5 ML UDCUP SSW SCH ×4 (09:33→20:08)
[2021-07-14] MEDS: Aspirin Chewable 81 MG TAB PO SCH (09:33)
[2021-07-14] MEDS: Heparin 5,000 UNITS/ML VIAL SC SCH ×3 (09:51→20:08)
[2021-07-14] MEDS: Bacitracin 1 PK TOP SCH ×2 (09:52→20:08)
[2021-07-15] MEDS: MEROPENEM 1 GM/50 ML 1 GM in Premix Bag 1 BAG IVPB SCH ×2 (00:09→08:34)
[2021-07-15] MEDS: levETIRAcetam in NS 500 MG in Premix Bag 1 BAG IVPB SCH (08:22)
[2021-07-15] MEDS: Floranex 1 GM Packet PO SCH (08:22)
[2021-07-15] MEDS: Bacitracin 1 PK TOP SCH (08:33)
[2021-07-15] MEDS: hydrALAZINE 25 MG TAB PO SCH (08:34)
[2021-07-15] MEDS: Aspirin Chewable 81 MG TAB PO SCH (08:34)
[2021-07-15] MEDS: Ascorbic Acid 500 mg Chewable Tablet PO SCH (08:34)
[2021-07-15] MEDS: Isosorbide Dinitrate 5 MG TAB PO SCH (08:34)
[2021-07-15] MEDS: Heparin 5,000 UNITS/ML VIAL SC SCH (08:37)
[2021-07-15] MEDS: Nystatin 500,000 UNITS/5 ML UDCUP SSW SCH ×2 (09:15→12:50)
[2021-07-15 12:12] VITALS: BP 130/85; TEMP 98.8
== END 2021-07-15 15:21 | DRG 871 ==
LOC: ERS 22:00 → ERHOLD 06-29 00:25 → 2NO 06-29 13:33 → ONC 07-09 18:29
PROVIDERS: ADMIT Internal Medicine; ATTEND Internal Medicine
PROC: 0S993ZX Drainage of Right Hip Joint, Percutaneous Approach, Diagnostic (ICD-10-PCS; 2021-07-08)
PROC: 02HV33Z Insertion of Infusion Device into Superior Vena Cava, Percutaneous Approach (ICD-10-PCS; principal; 2021-07-15)
PROC: B5181ZA Fluoroscopy of Superior Vena Cava using Low Osmolar Contrast, Guidance (ICD-10-PCS; 2021-07-15)
PROC: B548ZZA Ultrasonography of Superior Vena Cava, Guidance (ICD-10-PCS; 2021-07-15)
DX: A41.9 Sepsis, unspecified organism (principal); R53.2 Functional quadriplegia; G93.41 Metabolic encephalopathy; E43 Unspecified severe protein-calorie malnutrition; J69.0 Pneumonitis due to inhalation of food and vomit; F84.0 Autistic disorder; N17.9 Acute kidney failure, unspecified; I47.2 Ventricular tachycardia; N39.0 Urinary tract infection, site not specified; I24.8 Other forms of acute ischemic heart disease; Z66 Do not resuscitate; Z20.822 Contact with and (suspected) exposure to COVID-19; N41.9 Inflammatory disease of prostate, unspecified; G40.909 Epilepsy, unspecified, not intractable, without status epilepticus; F03.90 Unspecified dementia, unspecified severity, without behavioral disturbance, psychotic disturbance, mood disturbance, and anxiety; R13.10 Dysphagia, unspecified; I10 Essential (primary) hypertension; E86.0 Dehydration; L89.152 Pressure ulcer of sacral region, stage 2; F79 Unspecified intellectual disabilities; N40.0 Benign prostatic hyperplasia without lower urinary tract symptoms; L89.622 Pressure ulcer of left heel, stage 2; L89.112 Pressure ulcer of right upper back, stage 2; E87.5 Hyperkalemia; Z87.820 Personal history of traumatic brain injury; Z79.899 Other long term (current) drug therapy; Z79.82 Long term (current) use of aspirin; Z93.1 Gastrostomy status; Z68.20 Body mass index [BMI] 20.0-20.9, adult
CPT/HCPCS: 36415; 36416; 36569; 51702; 70450; 71045; 71260; 74177; 77012; 80048; 80053; 80202; 81003; 81015; 82553; 82570; 83605; 83735; 84300; 84484; 85025; 85060; 85610; 85652; 85730; 87040; 87070; 87086; 87149; 87205; 89051; 93005; 93970; 96365; 96367; C1751; J0692; J1644; J1953; J2185; J3370; J3490; J7050; Q9967; U0002; U0003; U0005

== ENCOUNTER 2021-09-04 19:51 | Emergency (ER) | payer MEDICARE, MEDICAID | END 2021-09-04 22:23 | LOC: ERS 19:51 | DX: K94.23 Gastrostomy malfunction (principal); G40.909 Epilepsy, unspecified, not intractable, without status epilepticus; I10 Essential (primary) hypertension; D64.9 Anemia, unspecified; N17.9 Acute kidney failure, unspecified | CPT/HCPCS: 74018; Q9963 ==

== ENCOUNTER 2021-11-26 03:36 | Emergency (ER) | payer MEDICARE, MEDICAID ==
[2021-11-26 04:48] LABS: #Basophils 0.1 thou/uL (0.0-0.2); #Eosinphils 0.1 thou/uL (0.0-0.7); #Lymphocytes 1.6 thou/uL (1.20-3.40); #Monocytes 1.1 thou/uL (0.11-0.59); #Neutrophils 7.9 thou/uL (1.40-6.50); %Basophils 0.5 % (0.0-1.0); %Lymphocytes 15.1 % (21.0-51.0); %Monocytes 10.2 % (0.0-10.0); %Neutrophils 73.3 % (42.0-75.0); Hemoglobin 11.8 g/dL (14.0-18.0); Mean Corpuscular HGB CONC 30.9 g/dL (32.0-36.0); Mean Corpuscular Hemoglobin 28.7 pg (27.0-31.0); Mean Corpuscular Volume 92.8 fL (78.0-98.0); Mean Platelet Volume 6.5 fL (7.4-10.4); Platelet Count 547 thou/uL (130-400); RBC Distribution Width 15.1 % (11.5-14.5); Red Blood Cell (RBC) Count 4.11 mill/uL (4.70-6.10); White Blood Cell (WBC) Count 10.7 thou/uL (4.8-10.8)
[2021-11-26 06:10] LABS: ALT (SGPT) 37 U/L (8-55); AST (SGOT) 22 U/L (5-34); Albumin 3.5 g/dL (3.4-4.8); Alkaline Phosphatase 97 U/L (40-110); Anion Gap 16 mmol/L (10-20); BUN (Urea Nitrogen) 21 mg/dL (8.4-25.7); Bilirubin, Total 0.4 mg/dL (0.2-1.2); Calc. Creatinine Clearance 0 mL/min (70-130); Calcium 9.4 mg/dL (7.8-10.44); Carbon Dioxide 22 mmol/L (23-31); Chloride 96 mmol/L (98-107); Globulin 5.4 g/dL (2.4-3.5); Glucose 88 mg/dL (80-115); Potassium 4.1 mmol/L (3.5-5.1); Protein, Total 8.9 g/dL (5.8-8.1); Sodium 130 mmol/L (136-145)
== END 2021-11-26 08:29 ==
LOC: ERS 03:36
DX: S09.90XA Unspecified injury of head, initial encounter (principal); W06.XXXA Fall from bed, initial encounter; Z79.899 Other long term (current) drug therapy; Z79.82 Long term (current) use of aspirin; G40.909 Epilepsy, unspecified, not intractable, without status epilepticus; D64.9 Anemia, unspecified; I10 Essential (primary) hypertension
CPT/HCPCS: 36415; 36416; 70450; 72125; 80053; 85025

== ENCOUNTER 2022-01-22 12:48 | Inpatient (IN) | payer MEDICARE, MEDICAID ==
[2022-01-22 13:49] LABS: Hemoglobin 11.3 g/dL (14.0-18.0); Mean Corpuscular HGB CONC 32.5 g/dL (32.0-36.0); Mean Corpuscular Hemoglobin 30.7 pg (27.0-31.0); Mean Corpuscular Volume 94.4 fL (78.0-98.0); Mean Platelet Volume 6.7 fL (7.4-10.4); Platelet Count 458 thou/uL (130-400); RBC Distribution Width 16.5 % (11.5-14.5); White Blood Cell (WBC) Count 28.5 thou/uL (4.8-10.8)
[2022-01-22 14:04] LABS: Anisocytosis SLIGHT = 6-15 cells (100X) (0-5/hpf); Band 14 % (5-11); Eosinophils 1 % (0-10); Lymphocytes 4 % (21-51); MDiff Complete? YES; Neutrophil 81 % (42-75); Platelet Morphology Comment Appears Increased; Polychromasia SLIGHT = 2-3 cells (100X) (0-2/hpf); Vacuoles SLIGHT
[2022-01-22 14:10] LABS: ALT (SGPT) 63 U/L (8-55); AST (SGOT) 55 U/L (5-34); Acetaminophen Less than 10.0 mcg/mL (10.0-30.0); Albumin 3.5 g/dL (3.4-4.8); Alcohol Less than 10 mg/dL (Less than 10); Alkaline Phosphatase 115 U/L (40-110); Anion Gap 19 mmol/L (10-20); BUN (Urea Nitrogen) 51 mg/dL (8.4-25.7); Bilirubin, Total 0.3 mg/dL (0.2-1.2); Calc. Creatinine Clearance 0 mL/min (70-130); Carbon Dioxide 21 mmol/L (23-31); Chloride 100 mmol/L (98-107); Globulin 4.8 g/dL (2.4-3.5); Glucose 79 mg/dL (83-110); Lipase 26 U/L (8-78); Potassium 5.6 mmol/L (3.5-5.1); Protein, Total 8.3 g/dL (5.8-8.1); Salicylate Less than 8.0 mg/dL (15.0-30.0); Sodium 134 mmol/L (136-145)
[2022-01-22] MEDS ORDERED: Cefepime 2 GM VIAL ONE (16:02)
[2022-01-22 16:06] LABS: pH, Urine 8.5 (5.0-9.0)
[2022-01-22 16:08] LABS: Bilirubin Unable to Interpret (Negative); Blood, Urine Unable to Interpret (Negative); Clarity Cloudy (Clear); Glucose, Urine (Dipstick) Unable to Interpret mg/dL (Negative); Ketone, Urine Unable to Interpret mg/dL (Negative); Leukocyte Unable to Interpret (Negative); Nitrite Unable to Interpret (Negative); Protein, Urine (Dipstick) Unable to Interpret mg/dL (Neg-Trace); Urobilinogen UNABLE TO INTERPRET mg/dL (Less than 2)
[2022-01-22 16:09] LABS: Bacteria/HPF 3+ HPF (None Seen); RBC/HPF Greater than 50 HPF (0-3); WBC/HPF 21-50 HPF (0-3)
[2022-01-22] MEDS ORDERED: GUAIFENESIN SF SOLN 200 MG/10 ML UDCUP PO PRN (17:02)
[2022-01-22] MEDS ORDERED: Ondansetron PF 4 MG/2 ML Vial IVP PRN (17:03)
[2022-01-22] MEDS ORDERED: Vancomycin 1 GM/200 ML BAG ONE (17:09)
[2022-01-22] MEDS ORDERED: Vancomycin HCl 500 MG in Sodium Chloride 0.9% 100 ML IVPB SCH (17:15)
[2022-01-22] MEDS ORDERED: Enoxaparin Sodium 30 MG/0.3 ML SYRINGE SC SCH (17:15)
[2022-01-22 18:35] LABS: Lactic Acid 2.4 mmol/L (0.5-2.2)
[2022-01-22 19:51] VITALS: BMI 22.5
[2022-01-22] MEDS: Lactated Ringer's 1,000 ML IV SCH (20:22)
[2022-01-22] MEDS: hydrALAZINE 25 MG TAB PO SCH (20:23)
[2022-01-22] MEDS: Acetaminophen 325 MG TAB PO PRN (20:23)
[2022-01-22] MEDS: levETIRAcetam 100 mg/ml Oral Solution PO SCH (20:35)
[2022-01-22] MEDS: Isosorbide Dinitrate 5 MG TAB PO SCH (20:36)
[2022-01-23] MEDS ORDERED: Cefepime 1 GM in Sodium Chloride 0.9% 100 ML IVPB SCH (04:00)
[2022-01-23] MEDS: Lactated Ringer's 1,000 ML IV SCH ×3 (04:35→23:43)
[2022-01-23 06:21] LABS: #Eosinphils 0.2 thou/uL (0.0-0.7); #Monocytes 0.5 thou/uL (0.11-0.59); #Neutrophils 17.1 thou/uL (1.40-6.50); %Basophils 0.1 % (0.0-1.0); %Eosinophils 1.1 % (0.0-10.0); %Lymphocytes 5.1 % (21.0-51.0); %Monocytes 2.8 % (0.0-10.0); Hemoglobin 10.3 g/dL (14.0-18.0); Mean Corpuscular HGB CONC 31.6 g/dL (32.0-36.0); Mean Corpuscular Hemoglobin 29.8 pg (27.0-31.0); Mean Corpuscular Volume 94.1 fL (78.0-98.0); Mean Platelet Volume 6.5 fL (7.4-10.4); Platelet Count 417 thou/uL (130-400); RBC Distribution Width 16.4 % (11.5-14.5); Red Blood Cell (RBC) Count 3.47 mill/uL (4.70-6.10); White Blood Cell (WBC) Count 18.8 thou/uL (4.8-10.8)
[2022-01-23 06:44] LABS: ALT (SGPT) 47 U/L (8-55); AST (SGOT) 41 U/L (5-34); Alkaline Phosphatase 96 U/L (40-110); Anion Gap 15 mmol/L (10-20); BUN (Urea Nitrogen) 44 mg/dL (8.4-25.7); Bilirubin, Total 0.3 mg/dL (0.2-1.2); Calc. Creatinine Clearance 30 mL/min (70-130); Calcium 8.9 mg/dL (7.8-10.44); Carbon Dioxide 23 mmol/L (23-31); Chloride 105 mmol/L (98-107); Globulin 4.5 g/dL (2.4-3.5); Glucose 85 mg/dL (83-110); Protein, Total 7.5 g/dL (5.8-8.1); Sodium 139 mmol/L (136-145)
[2022-01-23] MEDS: Isosorbide Dinitrate 5 MG TAB PO SCH ×2 (08:52→20:01)
[2022-01-23] MEDS: Aspirin Chewable 81 MG TAB PO SCH (08:52)
[2022-01-23] MEDS: hydrALAZINE 25 MG TAB PO SCH ×2 (08:52→20:01)
[2022-01-23] MEDS: Enoxaparin Sodium 30 MG/0.3 ML SYRINGE SC SCH (08:52)
[2022-01-23] MEDS: Ascorbic Acid 500 mg Chewable Tablet PO SCH (08:52)
[2022-01-23] MEDS: levETIRAcetam 100 mg/ml Oral Solution PO SCH ×2 (08:53→20:01)
[2022-01-23 12:32] LABS: SARS-CoV-2 PCR by NAA Not Detected (NotDetected)
[2022-01-23 17:36] LABS: Vancomycin, Random 8.4 ug/mL (See Comment)
[2022-01-23] MEDS ORDERED: Vancomycin HCl 1.5 GM in Sodium Chloride 0.9% 250 ML 300 ML IVPB SCH (18:00)
[2022-01-23] MEDS: Acetaminophen 325 MG TAB PO PRN (19:49)
[2022-01-24] MEDS: Lactated Ringer's 1,000 ML IV SCH ×2 (03:28→16:22)
[2022-01-24] MEDS ORDERED: Cefepime 1 GM in Sodium Chloride 0.9% 100 ML IVPB SCH (04:00)
[2022-01-24 07:29] LABS: Hemoglobin 9.2 g/dL (14.0-18.0); Mean Corpuscular HGB CONC 32.2 g/dL (32.0-36.0); Mean Corpuscular Hemoglobin 30.9 pg (27.0-31.0); Mean Corpuscular Volume 95.9 fL (78.0-98.0); Mean Platelet Volume 6.9 fL (7.4-10.4); Platelet Count 409 thou/uL (130-400); RBC Distribution Width 16.4 % (11.5-14.5); Red Blood Cell (RBC) Count 2.98 mill/uL (4.70-6.10); White Blood Cell (WBC) Count 16.8 thou/uL (4.8-10.8)
[2022-01-24 07:45] LABS: Anisocytosis SLIGHT = 6-15 cells (100X) (0-5/hpf); Band 9 % (5-11); Eosinophils 4 % (0-10); Lymphocytes 8 % (21-51); MDiff Complete? YES; Monocytes 2 % (0-10); Neutrophil 77 % (42-75); Platelet Morphology Comment Appears Increased; Polychromasia SLIGHT = 2-3 cells (100X) (0-2/hpf)
[2022-01-24 07:47] LABS: ALT (SGPT) 40 U/L (8-55); AST (SGOT) 31 U/L (5-34); Albumin 2.6 g/dL (3.4-4.8); Alkaline Phosphatase 76 U/L (40-110); Anion Gap 13 mmol/L (10-20); BUN (Urea Nitrogen) 32 mg/dL (8.4-25.7); Bilirubin, Total 0.2 mg/dL (0.2-1.2); Calc. Creatinine Clearance 52 mL/min (70-130); Calcium 8.3 mg/dL (7.8-10.44); Carbon Dioxide 24 mmol/L (23-31); Chloride 106 mmol/L (98-107); Glucose 148 mg/dL (83-110); Potassium 3.4 mmol/L (3.5-5.1); Protein, Total 6.6 g/dL (5.8-8.1); Sodium 140 mmol/L (136-145)
[2022-01-24] MEDS: Enoxaparin Sodium 30 MG/0.3 ML SYRINGE SC SCH (09:29)
[2022-01-24] MEDS: Aspirin Chewable 81 MG TAB PO SCH (09:29)
[2022-01-24] MEDS: Ascorbic Acid 500 mg Chewable Tablet PO SCH (09:29)
[2022-01-24] MEDS: hydrALAZINE 25 MG TAB PO SCH ×2 (09:30→22:02)
[2022-01-24] MEDS: Isosorbide Dinitrate 5 MG TAB PO SCH ×2 (09:32→22:03)
[2022-01-24] MEDS: levETIRAcetam 500 mg/5 ml Oral Solution PO SCH ×2 (09:34→22:02)
[2022-01-24] MEDS: levETIRAcetam 100 mg/ml Oral Solution PO SCH (09:48)
[2022-01-24] MEDS: Cefepime 1 GM in Sodium Chloride 0.9% 100 ML IVPB SCH (16:19)
[2022-01-24 17:18] LABS: Vancomycin, Random 15.5 ug/mL (See Comment)
[2022-01-24] MEDS ORDERED: Vancomycin HCl 1.25 GM in Sodium Chloride 0.9% 250 ML 250 ML IVPB SCH (18:00)
[2022-01-24] MEDS: Acetaminophen 325 MG TAB PO PRN (22:02)
[2022-01-25] MEDS: Cefepime 1 GM in Sodium Chloride 0.9% 100 ML IVPB SCH ×2 (04:34→16:01)
[2022-01-25] MEDS: Lactated Ringer's 1,000 ML IV SCH ×2 (06:24→09:46)
[2022-01-25 06:25] LABS: #Eosinphils 0.6 thou/uL (0.0-0.7); #Lymphocytes 1.2 thou/uL (1.20-3.40); #Monocytes 0.4 thou/uL (0.11-0.59); #Neutrophils 9.9 thou/uL (1.40-6.50); %Basophils 0.1 % (0.0-1.0); %Eosinophils 4.6 % (0.0-10.0); %Lymphocytes 10.2 % (21.0-51.0); %Monocytes 3.5 % (0.0-10.0); %Neutrophils 81.6 % (42.0-75.0); Hemoglobin 8.8 g/dL (14.0-18.0); Mean Corpuscular HGB CONC 30.9 g/dL (32.0-36.0); Mean Corpuscular Hemoglobin 29.6 pg (27.0-31.0); Platelet Count 383 thou/uL (130-400); RBC Distribution Width 16.3 % (11.5-14.5); Red Blood Cell (RBC) Count 2.96 mill/uL (4.70-6.10); White Blood Cell (WBC) Count 12.1 thou/uL (4.8-10.8)
[2022-01-25 07:11] LABS: ALT (SGPT) 41 U/L (8-55); AST (SGOT) 39 U/L (5-34); Albumin 2.5 g/dL (3.4-4.8); Alkaline Phosphatase 83 U/L (40-110); Anion Gap 10 mmol/L (10-20); BUN (Urea Nitrogen) 24 mg/dL (8.4-25.7); Bilirubin, Total 0.2 mg/dL (0.2-1.2); Calc. Creatinine Clearance 66 mL/min (70-130); Carbon Dioxide 26 mmol/L (23-31); Chloride 104 mmol/L (98-107); Globulin 3.8 g/dL (2.4-3.5); Glucose 131 mg/dL (83-110); Potassium 4.1 mmol/L (3.5-5.1); Protein, Total 6.3 g/dL (5.8-8.1); Sodium 136 mmol/L (136-145)
[2022-01-25] MEDS: Aspirin Chewable 81 MG TAB PO SCH (09:48)
[2022-01-25] MEDS: Ascorbic Acid 500 mg Chewable Tablet PO SCH (09:48)
[2022-01-25] MEDS: levETIRAcetam 500 mg/5 ml Oral Solution PO SCH ×2 (09:48→20:03)
[2022-01-25] MEDS: hydrALAZINE 25 MG TAB PO SCH ×2 (09:49→20:04)
[2022-01-25] MEDS: Isosorbide Dinitrate 5 MG TAB PO SCH ×2 (09:50→20:04)
[2022-01-25] MEDS: Enoxaparin Sodium 30 MG/0.3 ML SYRINGE SC SCH (09:52)
[2022-01-25] MEDS ORDERED: Vancomycin HCl 1.25 GM in Sodium Chloride 0.9% 250 ML 250 ML IVPB SCH (17:00)
[2022-01-26] MEDS: Cefepime 1 GM in Sodium Chloride 0.9% 100 ML IVPB SCH (03:55)
[2022-01-26 07:21] LABS: #Eosinphils 0.5 thou/uL (0.0-0.7); #Lymphocytes 1.2 thou/uL (1.20-3.40); #Monocytes 0.6 thou/uL (0.11-0.59); #Neutrophils 8.7 thou/uL (1.40-6.50); %Eosinophils 4.7 % (0.0-10.0); %Lymphocytes 11.2 % (21.0-51.0); %Monocytes 5.6 % (0.0-10.0); %Neutrophils 78.5 % (42.0-75.0); Hemoglobin 9.2 g/dL (14.0-18.0); Mean Corpuscular HGB CONC 32.4 g/dL (32.0-36.0); Mean Corpuscular Hemoglobin 30.3 pg (27.0-31.0); Mean Corpuscular Volume 93.5 fL (78.0-98.0); Mean Platelet Volume 8.5 fL (7.4-10.4); Platelet Count 426 thou/uL (130-400); RBC Distribution Width 19.1 % (11.5-14.5); Red Blood Cell (RBC) Count 3.02 mill/uL (4.70-6.10)
[2022-01-26 07:33] LABS: ALT (SGPT) 39 U/L (8-55); AST (SGOT) 29 U/L (5-34); Albumin 2.7 g/dL (3.4-4.8); Alkaline Phosphatase 86 U/L (40-110); Anion Gap 12 mmol/L (10-20); BUN (Urea Nitrogen) 17 mg/dL (8.4-25.7); Bilirubin, Total Less than 0.2 mg/dL (0.2-1.2); Calc. Creatinine Clearance 68 mL/min (70-130); Calcium 8.5 mg/dL (7.8-10.44); Carbon Dioxide 25 mmol/L (23-31); Chloride 104 mmol/L (98-107); Globulin 4.1 g/dL (2.4-3.5); Glucose 125 mg/dL (83-110); Potassium 4.2 mmol/L (3.5-5.1); Protein, Total 6.8 g/dL (5.8-8.1); Sodium 137 mmol/L (136-145)
[2022-01-26] MEDS: Aspirin Chewable 81 MG TAB PO SCH (09:13)
[2022-01-26] MEDS: levETIRAcetam 500 mg/5 ml Oral Solution PO SCH ×2 (09:14→21:13)
[2022-01-26] MEDS: Ascorbic Acid 500 mg Chewable Tablet PO SCH (09:14)
[2022-01-26] MEDS: hydrALAZINE 25 MG TAB PO SCH ×2 (09:14→21:13)
[2022-01-26] MEDS: Enoxaparin Sodium 30 MG/0.3 ML SYRINGE SC SCH (09:14)
[2022-01-26] MEDS: Isosorbide Dinitrate 5 MG TAB PO SCH ×2 (09:14→21:14)
[2022-01-27 06:31] LABS: #Eosinphils 0.5 thou/uL (0.0-0.7); #Lymphocytes 1.7 thou/uL (1.20-3.40); #Monocytes 0.7 thou/uL (0.11-0.59); #Neutrophils 9.4 thou/uL (1.40-6.50); %Basophils 0.2 % (0.0-1.0); %Eosinophils 4.2 % (0.0-10.0); %Lymphocytes 13.5 % (21.0-51.0); %Monocytes 5.5 % (0.0-10.0); %Neutrophils 76.6 % (42.0-75.0); Hemoglobin 10.5 g/dL (14.0-18.0); Mean Corpuscular HGB CONC 32.3 g/dL (32.0-36.0); Mean Corpuscular Hemoglobin 30.7 pg (27.0-31.0); Mean Corpuscular Volume 95.2 fL (78.0-98.0); Mean Platelet Volume 7.1 fL (7.4-10.4); Platelet Count 508 thou/uL (130-400); RBC Distribution Width 16.2 % (11.5-14.5); Red Blood Cell (RBC) Count 3.41 mill/uL (4.70-6.10); White Blood Cell (WBC) Count 12.3 thou/uL (4.8-10.8)
[2022-01-27 06:55] LABS: ALT (SGPT) 51 U/L (8-55); AST (SGOT) 38 U/L (5-34); Albumin 3.1 g/dL (3.4-4.8); Alkaline Phosphatase 86 U/L (40-110); Anion Gap 13 mmol/L (10-20); BUN (Urea Nitrogen) 16 mg/dL (8.4-25.7); Bilirubin, Total 0.2 mg/dL (0.2-1.2); Calc. Creatinine Clearance 67 mL/min (70-130); Calcium 9.2 mg/dL (7.8-10.44); Carbon Dioxide 24 mmol/L (23-31); Chloride 102 mmol/L (98-107); Globulin 4.9 g/dL (2.4-3.5); Glucose 77 mg/dL (83-110); Potassium 4.6 mmol/L (3.5-5.1); Sodium 134 mmol/L (136-145)
[2022-01-27 07:40] VITALS: TEMP 98.8
[2022-01-27] MEDS: levETIRAcetam 500 mg/5 ml Oral Solution PO SCH (08:29)
[2022-01-27] MEDS: Aspirin Chewable 81 MG TAB PO SCH (08:29)
[2022-01-27] MEDS: Enoxaparin Sodium 30 MG/0.3 ML SYRINGE SC SCH (08:29)
[2022-01-27] MEDS: hydrALAZINE 25 MG TAB PO SCH (08:29)
[2022-01-27] MEDS: Ascorbic Acid 500 mg Chewable Tablet PO SCH (08:29)
[2022-01-27] MEDS: Isosorbide Dinitrate 5 MG TAB PO SCH (08:37)
[2022-01-27 12:36] VITALS: BP 129/80
== END 2022-01-27 14:02 | DRG 698 ==
LOC: ERS 12:48 → T4-B 17:05
PROVIDERS: ADMIT Family Medicine; ATTEND Internal Medicine
PROC: 0T2BX0Z Change Drainage Device in Bladder, External Approach (ICD-10-PCS; principal; 2022-01-22)
DX: T83.021A Displacement of indwelling urethral catheter, initial encounter (principal); R65.20 Severe sepsis without septic shock; E43 Unspecified severe protein-calorie malnutrition; R53.2 Functional quadriplegia; A41.59 Other Gram-negative sepsis; N17.9 Acute kidney failure, unspecified; R64 Cachexia; N13.6 Pyonephrosis; G93.49 Other encephalopathy; N13.8 Other obstructive and reflux uropathy; E87.2 Acidosis; E87.1 Hypo-osmolality and hyponatremia; G40.909 Epilepsy, unspecified, not intractable, without status epilepticus; I10 Essential (primary) hypertension; F03.90 Unspecified dementia, unspecified severity, without behavioral disturbance, psychotic disturbance, mood disturbance, and anxiety; E78.5 Hyperlipidemia, unspecified; Z20.822 Contact with and (suspected) exposure to COVID-19; E87.5 Hyperkalemia; R13.10 Dysphagia, unspecified; L89.91 Pressure ulcer of unspecified site, stage 1; D53.9 Nutritional anemia, unspecified; R53.81 Other malaise; Y83.8 Other surgical procedures as the cause of abnormal reaction of the patient, or of later complication, without mention of misadventure at the time of the procedure; N40.1 Benign prostatic hyperplasia with lower urinary tract symptoms; E87.6 Hypokalemia; Z79.82 Long term (current) use of aspirin; Z93.1 Gastrostomy status; Z79.899 Other long term (current) drug therapy; Z68.22 Body mass index [BMI] 22.0-22.9, adult
CPT/HCPCS: 36415; 36416; 70450; 71045; 74176; 76705; 80053; 80202; 80307; 81003; 81015; 82140; 83605; 83690; 85025; 87040; 87077; 87149; 87186; 87324; 87449; 93005; 96365; 96375; J0692; J1650; J3370; J3490; J7050; J7120; U0003; U0005

== ENCOUNTER 2022-06-07 07:44 | Emergency (ER) | payer MEDICARE, OTHER ==
[2022-06-07] MEDS ORDERED: GASTROGRAFIN 30 ML BOT ONE (09:33)
== END 2022-06-07 10:46 | disposition home or self-care (01) ==
LOC: ERS 07:44
DX: K94.23 Gastrostomy malfunction (principal); I10 Essential (primary) hypertension
CPT/HCPCS: 43762; 74018; Q9963

== ENCOUNTER 2022-06-24 22:38 | Emergency (ER) | payer MEDICARE, OTHER ==
[2022-06-25 00:20] LABS: #Basophils 0.1 thou/uL (0.0-0.2); #Eosinphils 0.3 thou/uL (0.0-0.7); #Lymphocytes 1.7 thou/uL (1.20-3.40); #Monocytes 0.5 thou/uL (0.11-0.59); #Neutrophils 3.2 thou/uL (1.40-6.50); %Basophils 1.2 % (0.0-1.0); %Lymphocytes 29.3 % (21.0-51.0); %Monocytes 8.7 % (0.0-10.0); %Neutrophils 54.8 % (42.0-75.0); Hemoglobin 13.1 g/dL (14.0-18.0); Mean Corpuscular Hemoglobin 31.2 pg (27.0-31.0); Mean Corpuscular Volume 94.5 fL (78.0-98.0); Mean Platelet Volume 6.9 fL (7.4-10.4); Platelet Count 267 thou/uL (130-400); RBC Distribution Width 13.6 % (11.5-14.5); Red Blood Cell (RBC) Count 4.19 mill/uL (4.70-6.10); White Blood Cell (WBC) Count 5.8 thou/uL (4.8-10.8)
[2022-06-25 00:42] LABS: ALT (SGPT) 32 U/L (8-55); AST (SGOT) 28 U/L (5-34); Albumin 3.8 g/dL (3.4-4.8); Alkaline Phosphatase 109 U/L (40-110); Anion Gap 14 mmol/L (10-20); BUN (Urea Nitrogen) 25 mg/dL (8.4-25.7); Bilirubin, Total 0.3 mg/dL (0.2-1.2); CK (CPK) 193 U/L (30-200); Calc. Creatinine Clearance 0 mL/min (70-130); Calcium 9.9 mg/dL (7.8-10.44); Carbon Dioxide 26 mmol/L (23-31); Chloride 100 mmol/L (98-107); Estimated GFR 87; Globulin 4.3 g/dL (2.4-3.5); Glucose 66 mg/dL (83-110); Lipase 41 U/L (8-78); Potassium 4.5 mmol/L (3.5-5.1); Protein, Total 8.1 g/dL (5.8-8.1); Sodium 135 mmol/L (136-145)
[2022-06-25 00:54] LABS: Bacteria/HPF 3+ HPF (None Seen); Bilirubin Negative (Negative); Blood, Urine Negative (Negative); Clarity Turbid (Clear); Glucose, Urine (Dipstick) Normal (Negative); Ketone, Urine Negative (Negative); Leukocyte 500 Leu/uL (Negative); Nitrite Negative (Negative); Protein, Urine (Dipstick) 50 mg/dL (Neg-Trace); Specific Gravity, Urine 1.024 (1.002-1.036); Squamous Epithelial None Seen HPF (0-3); Urobilinogen Normal mg/dL (Less than 2); WBC/HPF Greater than 50 HPF (0-3)
[2022-06-25 00:56] LABS: RBC/HPF None Seen HPF (0-3)
[2022-06-25] MEDS ORDERED: Metoclopramide HCl 10 MG TAB ONE (00:58)
[2022-06-25] MEDS ORDERED: cefTRIAXone\\ROCEPHIN 1 GM VIAL ONE (02:45)
[2022-06-25] MEDS ORDERED: Lidocaine 1% PF 5 ML VIAL ONE (02:46)
[2022-06-25] MEDS ORDERED: Diazepam 10 MG/2 ML SYRINGE ONE (03:02)
== END 2022-06-25 03:54 | disposition home or self-care (01) ==
LOC: ERS 22:38
DX: R06.6 Hiccough (principal); N30.00 Acute cystitis without hematuria; Z79.82 Long term (current) use of aspirin; Z79.899 Other long term (current) drug therapy
CPT/HCPCS: 36415; 70450; 74022; 80053; 81003; 81015; 82140; 82550; 83690; 84443; 84484; 85025; 87077; 87086; 87186; 93005; 96372; J0696; J3360

== ENCOUNTER 2022-08-14 08:31 | Day surgery (SDC) | payer MEDICARE, MEDICAID ==
[2022-08-13 10:23] VITALS: BMI 22.9
[2022-08-14] MEDS ORDERED: PROPOFOL 200 MG/20 ML VIAL ONE (10:38)
== END 2022-08-14 11:30 | disposition home or self-care (01) ==
LOC: SDC 08:31 → SURG A 08:38 → UNDOADMIN 08:38 → UNDODISIN 11:30 → SDC 11:30
PROVIDERS: ATTEND Internal Medicine Gastroenterology
PROC: 0DH63UZ Insertion of Feeding Device into Stomach, Percutaneous Approach (ICD-10-PCS; principal; 2022-08-14)
DX: K94.29 Other complications of gastrostomy (principal); R13.12 Dysphagia, oropharyngeal phase; K22.10 Ulcer of esophagus without bleeding; K29.70 Gastritis, unspecified, without bleeding; K29.80 Duodenitis without bleeding; I11.0 Hypertensive heart disease with heart failure; I50.9 Heart failure, unspecified; G40.909 Epilepsy, unspecified, not intractable, without status epilepticus; F03.90 Unspecified dementia, unspecified severity, without behavioral disturbance, psychotic disturbance, mood disturbance, and anxiety; Z86.73 Personal history of transient ischemic attack (TIA), and cerebral infarction without residual deficits; Z74.01 Bed confinement status; Z79.82 Long term (current) use of aspirin; Z79.899 Other long term (current) drug therapy; Y83.8 Other surgical procedures as the cause of abnormal reaction of the patient, or of later complication, without mention of misadventure at the time of the procedure
CPT/HCPCS: J2704

== ENCOUNTER 2023-02-02 00:24 | Inpatient (IN) | payer MEDICARE, MEDICAID ==
[2023-02-02 02:25] LABS: ALT (SGPT) 31 U/L (8-55); AST (SGOT) 26 U/L (5-34); Alkaline Phosphatase 100 U/L (40-110); Anion Gap 19 mmol/L (10-20); BUN (Urea Nitrogen) 43 mg/dL (8.4-25.7); Bilirubin, Total 0.5 mg/dL (0.2-1.2); CK (CPK) 919 U/L (30-200); Calc. Creatinine Clearance 0 mL/min (70-130); Calcium 10.3 mg/dL (7.8-10.44); Carbon Dioxide 22 mmol/L (23-31); Chloride 98 mmol/L (98-107); Estimated GFR 38; Globulin 4.6 g/dL (2.4-3.5); Glucose 127 mg/dL (83-110); Potassium 4.9 mmol/L (3.5-5.1); Protein, Total 8.6 g/dL (5.8-8.1); Sodium 134 mmol/L (136-145)
[2023-02-02] MEDS ORDERED: Aspirin 300 MG Suppository PR SCH (03:15)
[2023-02-02 03:28] LABS: #Eosinphils 0.1 thou/uL (0.0-0.7); #Lymphocytes 1.2 thou/uL (1.20-3.40); #Monocytes 1.3 thou/uL (0.11-0.59); %Basophils 0.3 % (0.0-1.0); %Eosinophils 0.6 % (0.0-10.0); %Monocytes 12.2 % (0.0-10.0); %Neutrophils 75.9 % (42.0-75.0); Hemoglobin 16.7 g/dL (14.0-18.0); Mean Corpuscular HGB CONC 36.2 g/dL (32.0-36.0); Mean Corpuscular Hemoglobin 35.2 pg (27.0-31.0); Mean Corpuscular Volume 97.1 fl (78.0-98.0); Mean Platelet Volume 7.1 fL (7.4-10.4); Platelet Count 245 10x3/uL (130-400); RBC Distribution Width 13.5 % (11.5-14.5); Red Blood Cell (RBC) Count 4.74 mill/uL (4.70-6.10); White Blood Cell (WBC) Count 10.6 10x3/uL (4.8-10.8)
[2023-02-02 03:35] LABS: CRP (Inflammatory) 6.19 mg/dL (= or < 0.5)
[2023-02-02 04:17] LABS: CKMB 2.3 ng/mL (0-6.6)
[2023-02-02] MEDS ORDERED: Aspirin 300 MG Suppository ONE (05:14)
[2023-02-02 05:47] LABS: Troponin I 0.043 ng/mL (< 0.028)
[2023-02-02 06:39] LABS: Lactic Acid 2.1 mmol/L (0.5-2.2)
[2023-02-02] MEDS ORDERED: Ondansetron PF 4 MG/2 ML Vial IVP PRN (06:43)
[2023-02-02] MEDS ORDERED: Acetaminophen 650 MG Suppository PR PRN (06:43)
[2023-02-02] MEDS ORDERED: Ondansetron ODT 4 MG TAB PO PRN (06:43)
[2023-02-02] MEDS ORDERED: Acetaminophen 325 MG TAB PO PRN (06:43)
[2023-02-02 08:45] LABS: Troponin I 0.033 ng/mL (< 0.028)
[2023-02-02] MEDS ORDERED: hydrALAZINE 20 MG/ML VIAL SLOW IVP PRN ×2 (14:13→18:24)
[2023-02-02] MEDS ORDERED: Dextrose 5 %-0.45 % NaCl 1,000 ML IV SCH (14:15)
[2023-02-02] MEDS ORDERED: cefTRIAXone\\ROCEPHIN 1 GM in Sodium Chloride 0.9% 100 ML IVPB SCH (15:00)
[2023-02-02] MEDS ORDERED: Nitroglycerin 2% Ointment 1 INCH/1 GM Packet ONE (15:05)
[2023-02-02] MEDS ORDERED: cefTRIAXone (ROCEPHIN) 1 GM VIAL ONE (15:07)
[2023-02-02] MEDS ORDERED: hydrALAZINE 20 MG/ML VIAL ONE (15:11)
[2023-02-02] MEDS: Nitroglycerin 2% Ointment 1 INCH/1 GM Packet TOP SCH ×2 (15:13→23:14)
[2023-02-02 16:27] LABS: Anion Gap 20 mmol/L (10-20); BUN (Urea Nitrogen) 56 mg/dL (8.4-25.7); Calc. Creatinine Clearance 22 mL/min (70-130); Calcium 10.2 mg/dL (7.8-10.44); Carbon Dioxide 21 mmol/L (23-31); Chloride 99 mmol/L (98-107); Estimated GFR 21; Glucose 120 mg/dL (83-110); Potassium 6.8 mmol/L (3.5-5.1); Sodium 133 mmol/L (136-145)
[2023-02-02] MEDS ORDERED: Sodium Bicarb 50 MEQ/50 ML Abboject 8.4% SYRINGE IVP SCH (17:00)
[2023-02-02] MEDS ORDERED: Dextrose 50% Abboject 50 ML SYRINGE SLOW IVP SCH (17:00)
[2023-02-02] MEDS ORDERED: Sodium Chloride 0.9% 500 ML IV SCH (17:00)
[2023-02-02] MEDS ORDERED: Sodium Bicarbonate 150 MEQ in Dextrose 5% in Water 1,000 ML IV SCH (17:00)
[2023-02-02] MEDS ORDERED: Insulin Regular 300 UNITS/3 ML VIAL IVP SCH (17:00)
[2023-02-02] MEDS: metroNIDAZOLE 500 MG in Premix Bag 1 BAG IVPB SCH ×3 (17:20→23:14)
[2023-02-02 17:29] LABS: Anion Gap 23 mmol/L (10-20); BUN (Urea Nitrogen) 59 mg/dL (8.4-25.7); Calc. Creatinine Clearance 20 mL/min (70-130); Calcium 10.2 mg/dL (7.8-10.44); Carbon Dioxide 16 mmol/L (23-31); Chloride 101 mmol/L (98-107); Estimated GFR 19; Glucose 125 mg/dL (83-110); Sodium 133 mmol/L (136-145)
[2023-02-02 17:46] LABS: Potassium 7.4 mmol/L (3.5-5.1)
[2023-02-02] MEDS ORDERED: Labetalol HCl 100 MG/20 ML VIAL SLOW IVP SCH (18:30)
[2023-02-02] MEDS: Sodium Bicarbonate 150 MEQ in Dextrose 5% in Water 1,000 ML IV SCH (19:29)
[2023-02-02] MEDS ORDERED: LOKELMA 10 GM PACKET PO SCH (20:37)
[2023-02-02] MEDS: hydrALAZINE 25 MG TAB PER TUBE SCH (20:39)
[2023-02-02] MEDS ORDERED: Famotidine/PF 20 mg/2ml Vial SLOW IVP SCH (21:00)
[2023-02-02] MEDS ORDERED: hydrALAZINE 25 MG TAB PER TUBE SCH (21:00)
[2023-02-02] MEDS ORDERED: VANCOMYCIN 1.25 GM/250 ML BAG 1.25 GM in Premix Bag 1 BAG IVPB SCH (22:30)
[2023-02-02 22:34] LABS: Anion Gap 23 mmol/L (10-20); BUN (Urea Nitrogen) 61 mg/dL (8.4-25.7); Calc. Creatinine Clearance 19 mL/min (70-130); Calcium 9.3 mg/dL (7.8-10.44); Carbon Dioxide 23 mmol/L (23-31); Chloride 98 mmol/L (98-107); Estimated GFR 18; Glucose 137 mg/dL (83-110); Sodium 139 mmol/L (136-145)
[2023-02-02] MEDS ORDERED: Vancomycin Dose by Levels Sliding Scale (Wt 71-99) FS SCH (22:45)
[2023-02-02 22:52] LABS: Bacteria/HPF 4+ HPF (None Seen); Bilirubin Negative (Negative); Blood, Urine 1+ (Negative); Clarity Extra Turbid (Clear); Glucose, Urine (Dipstick) Normal (Negative); Ketone, Urine Negative (Negative); Leukocyte 500 Leu/uL (Negative); Nitrite Negative (Negative); Protein, Urine (Dipstick) 600 mg/dL (Neg-Trace); Specific Gravity, Urine 1.019 (1.002-1.036); Squamous Epithelial None Seen HPF (0-3); Triple Phosphate Crystal 2+ HPF (None Seen); Urobilinogen Normal mg/dL (Less than 2); pH, Urine 8.5 (5.0-9.0)
[2023-02-02] MEDS ORDERED: Vancomycin 1.5 GRAM/300 ML BAG 1.5 GM in Premix Bag 1 BAG IVPB SCH (23:00)
[2023-02-02 23:26] LABS: Creatinine, Urine 94.23 mg/dL (63-166)
[2023-02-03 04:05] LABS: Anion Gap 21 mmol/L (10-20); BUN (Urea Nitrogen) 57 mg/dL (8.4-25.7); CK (CPK) 607 U/L (30-200); Calc. Creatinine Clearance 18 mL/min (70-130); Calcium 8.9 mg/dL (7.8-10.44); Carbon Dioxide 29 mmol/L (23-31); Chloride 96 mmol/L (98-107); Estimated GFR 17; Glucose 135 mg/dL (83-110); Sodium 142 mmol/L (136-145)
[2023-02-03 04:13] LABS: Hemoglobin 14.5 g/dL (14.0-18.0); MDiff Complete? YES; Mean Corpuscular HGB CONC 33.9 g/dL (32.0-36.0); Mean Corpuscular Hemoglobin 32.8 pg (27.0-31.0); Mean Corpuscular Volume 96.7 fl (78.0-98.0); Mean Platelet Volume 7.6 fL (7.4-10.4); Platelet Count 204 10x3/uL (130-400); RBC Distribution Width 13.6 % (11.5-14.5); Red Blood Cell (RBC) Count 4.42 mill/uL (4.70-6.10); White Blood Cell (WBC) Count 7.3 10x3/uL (4.8-10.8)
[2023-02-03 04:14] LABS: Band 17 % (5-11); Lymphocytes 10 % (21-51); Monocytes 13 % (0-10); Neutrophil 59 % (42-75); Platelet Morphology Comment Appears Adequate; RBC Morphology Normal; Reactive Lymphocytes 1 % (0-10)
[2023-02-03] MEDS: Sodium Bicarbonate 150 MEQ in Dextrose 5% in Water 1,000 ML IV SCH (04:42)
[2023-02-03] MEDS: Nitroglycerin 2% Ointment 1 INCH/1 GM Packet TOP SCH (06:35)
[2023-02-03] MEDS ORDERED: Sodium Bicarbonate 50 MEQ in Sodium Chloride 0.45% 1,000 ML IV SCH (07:30)
[2023-02-03 07:33] VITALS: TEMP 97.4
[2023-02-03] MEDS ORDERED: Heparin 5,000 UNITS/ML VIAL SC SCH (09:00)
[2023-02-03 09:51] VITALS: BMI 21.2
[2023-02-03] MEDS: metroNIDAZOLE 500 MG in Premix Bag 1 BAG IVPB SCH (09:57)
[2023-02-03] MEDS: hydrALAZINE 25 MG TAB PER TUBE SCH (10:08)
[2023-02-03 10:50] VITALS: BP 147/96
[2023-02-03] MEDS ORDERED: levETIRAcetam 100 mg/ml Oral Solution PER TUBE SCH (21:00)
[2023-02-03] MEDS ORDERED: hydrALAZINE 25 MG TAB PER TUBE SCH (21:00)
[2023-02-03] MEDS ORDERED: hydrOXYzine 10 MG TAB PER TUBE SCH (21:00)
[2023-02-03] MEDS ORDERED: Isosorbide Dinitrate 5 MG TAB PER TUBE SCH (21:00)
[2023-02-04] MEDS ORDERED: Aspirin Chewable 81 MG TAB PER TUBE SCH (09:00)
[2023-02-04] MEDS ORDERED: Ascorbic Acid 500 mg Chewable Tablet PER TUBE SCH (09:00)
== END 2023-02-03 12:54 | disposition hospice, home (50) | DRG 871 ==
LOC: ERS 00:24 → ERHOLD 03:19 → 2NO 16:34 → OBSVTOIN 17:47 → IMCU/EMU 21:52
PROVIDERS: ADMIT Emergency Medicine; ATTEND Emergency Medicine
DX: A41.9 Sepsis, unspecified organism (principal); R65.20 Severe sepsis without septic shock; Z66 Do not resuscitate; J69.0 Pneumonitis due to inhalation of food and vomit; N17.0 Acute kidney failure with tubular necrosis; E87.1 Hypo-osmolality and hyponatremia; M62.82 Rhabdomyolysis; E87.20 Acidosis, unspecified; F03.90 Unspecified dementia, unspecified severity, without behavioral disturbance, psychotic disturbance, mood disturbance, and anxiety; I10 Essential (primary) hypertension; E87.5 Hyperkalemia; E86.9 Volume depletion, unspecified; Z87.820 Personal history of traumatic brain injury; Z93.1 Gastrostomy status; Z79.899 Other long term (current) drug therapy; Z79.82 Long term (current) use of aspirin
CPT/HCPCS: 36415; 36416; 71045; 80048; 80053; 81001; 82550; 82553; 82570; 83605; 83880; 84156; 84300; 84484; 84540; 85025; 86140; 87040; 87077; 87149; 93005; 94760; 96365; 96366; 96372; 96375; G0378; J0360; J0696; J1644; J1650; J1815; J1956; J2405; J3370; J3490; J7030; J7042; J7070; J7999; S0028